=== PATIENT | female | born 1965 | race Caucasian/White ===

== ENCOUNTER 2016-10-31 07:55 | Emergency (ER) | payer MEDICAID ==
[~2016-10-31] VITALS: Ht 162.6 cm; Wt 45.0 kg
[~2016-10-31 07:55] MED LIST: ADVA100A INH; CREO3000 PO; IMIT50TA PO; KEPP10002 PO; MIDO5TAB PO; NEXI20CA PO; PANC1680 PO; PROM25TA5 PO; SPIRCAP INH; TOPI200 PO; ZOFR8TAB4 SL
[2016-10-31 07:56] VITALS: BP 122/58; PULSE 87; RESP 16; TEMP 97.6; O2SAT 97
--- NOTE | 2016-10-31 08:01 | PD ---
Physical Exam Date Seen by Provider: Oct 31, 2016 Time Seen by Provider: 07:58 Narrative Pt is a 51 year old female presenting to the ED with chief c/o Abdominal pain that radiates to around to her mid lower back. Pt reports she has vomited this morning. Pt reports hx of pancreatitis and her symptoms today are similar to what she's experienced in the past. She denies any diarrhea, fevers, [place], chest pain. Pt states her pain is an 8/10, the pain started 4 days ago. VSS, awaiting bed placement. MDM Supervised Visit with POOJA: Tiffanie Jones Oct 31, 2016 08:01
[2016-10-31] MEDS ORDERED: SODIUM CHLORIDE 0.9% FLUSH 10 ML FLUSH IV FLUSH PRN (08:15)
--- NOTE | 2016-10-31 08:23 | PD ---
HPI Chief Complaint: Abdominal Pain Time Seen by Provider: 08:08 Travel History International Travel<30 days: No Contact w/Intl Traveler<30days: No Traveled to known affect area: No History of Present Illness HPI So 51 year-old woman with chronic recurrent abdominal pain attributed to chronic pancreatitis who presents to the emergency department exacerbations of the same pain. States symptoms are worse in the past several days. She endorses worsening abdominal pain radiating through to the back, associated with vomiting. No change in her bowel movements. She was seen in [place] 2 days ago was given a prescription for antibiotics for UTI. She is currently taking Macrobid. She denies any other associated symptoms. History Past Medical History Narrative Medical Chronic recurrent abdominal pain, chronic pancreatitis, peptic ulcer disease and GERD Seizures Asthma Migraines Reported hypotension Tetanus Vaccination: < 5 Years Influenza Vaccination: No Menopausal: Yes : 1 Para: 1 Social History Alcohol Use: No Tobacco Use: No Allergies-Medications (Allergen,Severity, Reaction): Coded Allergies: Aspirin (Verified Allergy, Severe, 10/31/16) anaphylaxis Benadryl (Verified Allergy, Severe, 10/31/16) anaphylaxis Codeine (Verified Allergy, Severe, 10/31/16) Keflex (Verified Allergy, Severe, Hives, 10/31/16) Penicillin (Verified Allergy, Severe, Anaphylaxis, 10/31/16) Latex (Verified Allergy, Unknown, 10/31/16) Dilantin (Verified Adverse Reaction, Intermediate, 10/31/16) was given toxic dose years ago Reported Meds & Prescriptions Reported Meds & Active Scripts Active Zofran Odt (Ondansetron Odt) 8 Mg Tab 8 Mg SL Q8H PRN Reported Phenergan (Promethazine HCl) 25 Mg Tab 25 Mg PO ONCE Nexium (Esomeprazole DR) 20 Mg Capdr 20 Mg PO DAILY Spiriva Handihaler (Tiotropium Inh) 18 Mcg Cap 18 Mcg INH DAILY 1 capsule = 18 mcg Advair Diskus Inh (Fluticasone-Salmeterol Inh) 100-50 Mcg/Blist Aer 100 Puff INH BID Rinse mouth after use. Topamax (Topiramate) 200 Mg Tab 200 Mg PO BID Creon (Pancrelipase) 3,000-9,500-15,000 Units Cap 1 Cap PO TIDPC Pancreaze (Pancrelipase) 16,800-40,000-70,000 Units Cap 1 Cap PO TIDPC Midodrine 5 Mg Tab 5 Mg PO TID Imitrex (Sumatriptan Succinate) 50 Mg Tab 50 Mg PO ONCE PRN If a satisfactory response has not been obtained at 2 hours, a second dose may be administered Keppra (Levetiracetam) 1,000 Mg Tab 1,000 Mg PO BID Review of Systems Except as stated in HPI: all other systems reviewed are Neg Physical Exam Narrative GENERAL: Significant 51 year-old woman, uncomfortable but nontoxic. SKIN: Focused skin assessment warm/dry. CARDIOVASCULAR: Regular rate and rhythm. No murmur appreciated. RESPIRATORY: No accessory muscle use. Clear to auscultation. Breath sounds equal bilaterally. GASTROINTESTINAL: Abdomen soft, non-tender, nondistended. Hepatic and splenic margins not palpable. MUSCULOSKELETAL: No obvious deformities. No edema. NEUROLOGICAL: Awake and alert. No obvious cranial nerve deficits. Motor grossly within normal limits. Normal speech. PSYCHIATRIC: Appropriate mood and affect; insight and judgment normal. Data Data Last Documented VS Vital Signs Date Time Temp Pulse Resp B/P Pulse Ox O2 Delivery O2 Flow Rate FiO2 10/31/16 07:56 97.6 87 16 122/58 97 Orders Complete Blood Count With Diff (10/31/16 08:08) Comprehensive Metabolic Panel (10/31/16 08:08) Lipase (10/31/16 08:08) Urinalysis - C+S If Indicated (10/31/16 08:08) Iv Access Insert/Monitor (10/31/16 08:08) NPO (10/31/16 08:08) Sodium Chloride 0.9% Flush (Ns Flush) (10/31/16 08:15) Prochlorperazine Inj (Compazine Inj) (10/31/16 08:30) Ketorolac Inj (Toradol Inj) (10/31/16 08:30) Dicyclomine Inj (Bentyl Inj) (10/31/16 08:30) Sodium Chlor 0.9% 1000 Ml Inj (Ns 1000 M (10/31/16 08:30) Labs Laboratory Tests Test 10/31/16 08:40 White Blood Count 4.5 TH/MM3 Red Blood Count 4.37 MIL/MM3 Hemoglobin 12.1 GM/DL Hematocrit 36.3 % Mean Corpuscular Volume 83.0 FL Mean Corpuscular Hemoglobin 27.6 PG Mean Corpuscular Hemoglobin 33.3 % Concent Red Cell Distribution Width 15.3 % Platelet Count 137 TH/MM3 Mean Platelet Volume 10.3 FL Neutrophils (%) (Auto) 67.1 % Lymphocytes (%) (Auto) 20.4 % Monocytes (%) (Auto) 7.9 % Eosinophils (%) (Auto) 3.6 % Basophils (%) (Auto) 1.0 % Neutrophils # (Auto) 3.0 TH/MM3 Lymphocytes # (Auto) 0.9 TH/MM3 Monocytes # (Auto) 0.4 TH/MM3 Eosinophils # (Auto) 0.2 TH/MM3 Basophils # (Auto) 0.0 TH/MM3 CBC Comment DIFF FINAL Differential Comment Urine Color LIGHT-YELLOW Urine Turbidity CLEAR Urine pH 6.5 Urine Specific [place] 1.010 Urine Protein NEG mg/dL Urine Glucose (UA) NEG mg/dL Urine Ketones NEG mg/dL Urine Occult Blood NEG Urine Nitrite NEG Urine Bilirubin NEG Urine Urobilinogen LESS THAN 2.0 MG/DL Urine Leukocyte Esterase NEG Urine RBC LESS THAN 1 /hpf Urine WBC 1 /hpf Urine Squamous Epithelial <1 /hpf Cells Microscopic Urinalysis Comment CULT NOT INDICATED Sodium Level 138 MEQ/L Potassium Level 4.1 MEQ/L Chloride Level 103 MEQ/L Carbon Dioxide Level 27.6 MEQ/L Anion Gap 7 MEQ/L Blood Urea Nitrogen 15 MG/DL Creatinine 0.98 MG/DL Estimat Glomerular Filtration 60 ML/MIN Rate Random Glucose 91 MG/DL Calcium Level 8.8 MG/DL Total Bilirubin 0.2 MG/DL Aspartate Amino Transf 17 U/L (AST/SGOT) Alanine Aminotransferase 30 U/L (ALT/SGPT) Alkaline Phosphatase 74 U/L Total Protein 6.4 GM/DL Albumin 3.9 GM/DL Lipase 634 U/L [facility] Medical Decision Making Medical Screen Exam Complete: Yes Emergency Medical Condition: Yes Medical Record Reviewed: Yes Interpretation(s) LABS: CBC is unremarkable. CMP is unremarkable. Lipase 634 UA unremarkable Differential Diagnosis Acute recurrent abdominal pain, pancreatitis, gastritis, cholelithiasis, cholecystitis, UTI, other Narrative Course Medical decision making 51 year-old woman with acute recurrent abdominal pain attributed to chronic pancreatitis, etiology appears to be idiopathic. Reviewed past years worth of admissions and ED visits. Extensive workups in the past. She is a little bit of intermittent ductal dilatation in her liver that been stable for some time. She's had ultrasounds and MRCP's and CAT scans have not shown any other etiology. She is otherwise well. She is a benign abdominal exam at this time. Plan supportive treatment. Avoid opiates. Reassess. FINAL: Patient improved, was sawing some nausea. Labs otherwise unremarkable. Minimally elevated lipase. Recommend supportive treatment. Diagnosis Primary Impression: Abdominal pain Additional Impression: Pancreatitis, recurrent Additional Instructions: Eat a clear liquid diet until your abdominal pain is began resolving. This of the foods such as broths and jellos. As your pain begins resolving, you can advance diet as tolerated. Use Phenergan as needed for nausea or vomiting. Take Bentyl as needed for abdominal pain. Follow-up with your GI doctor at the first available appointment. Return to the emergency department for any new or worsening symptoms. Med/Other Pt SpecificInfo: Prescription(s) given Scripts Dicyclomine (Bentyl)20 Mg Tab20 Mg PO QID PRN (ABDOMINAL CRAMPING) #20 TAB Prov:Ramses Quiroga MD 10/31/16 Promethazine (Phenergan)25 Mg Tab25 Mg PO ONCE #1 TAB Ref 0 Prov:Ramses Quiroga MD 10/31/16 Disposition: 01 DISCHARGE HOME Condition: Stable Ramses Quiroga MD Oct 31, 2016 08:23
[2016-10-31] MEDS ORDERED: PROCHLORPERAZINE INJ 10 MG/2 ML VIAL IV PUSH ONE (08:30)
[2016-10-31] MEDS ORDERED: SODIUM CHLOR 0.9% 1000 ML INJ 1,000 ML IV ONE ×2 (08:30→10:00)
[2016-10-31] MEDS ORDERED: DICYCLOMINE HCL 20 MG/2 ML VIAL IM ONE (08:30)
[2016-10-31] MEDS ORDERED: KETOROLAC TROMETHAMINE 60 MG/2 ML (IM) VIAL IM ONE (08:30)
[2016-10-31 09:17] LABS: EOSINOPHIL # 0.2 TH/MM3 (0-0.4); EOSINOPHIL % 3.6 % (0.0-4.0); HEMATOCRIT 36.3 % (35.0-46.0); HEMO FLAGS DIFF FINAL; LYMPH % 20.4 % (9.0-44.0); LYMPHOCYTE # 0.9 TH/MM3 (1.0-4.8); MEAN CORPUSCULAR HEMOGLOBIN 27.6 PG (27.0-34.0); MEAN CORPUSCULAR HGB CONC 33.3 % (32.0-36.0); MONO % 7.9 % (0.0-8.0); NEUT % 67.1 % (16.0-70.0); PLATELET COUNT 137 TH/MM3 (150-450); RED BLOOD COUNT 4.37 MIL/MM3 (4.00-5.30); RED CELL DISTRIBUTION WIDTH 15.3 % (11.6-17.2); WHITE BLOOD COUNT 4.5 TH/MM3 (4.0-11.0)
[2016-10-31 09:32] LABS: BLOOD, URINE NEG (NEG); COMMENT (UR) CULT NOT INDICATED; CULTURE IF INDICATED CULT NOT INDICATED; GLUCOSE,URINE NEG (NEG); KETONE, URINE NEG (NEG); NITRITE,URINE NEG (NEG); PH, URINE 6.5 (5.0-8.5); SQUAMOUS EPITHELIAL CELL URINE <1 /hpf (0-5); URINE COLOR LIGHT-YELLOW (YELLW/STRAW)
[2016-10-31 09:37] LABS: ANION GAP 7 MEQ/L (5-15); AST (GOT) 17 U/L (15-37); BICARBONATE 27.6 MEQ/L (21.0-32.0); BLOOD UREA NITROGEN 15 MG/DL (7-18); CHLORIDE 103 MEQ/L (98-107); GLOMERULAR FILTRATION RATE 60 ML/MIN (>89); POTASSIUM 4.1 MEQ/L (3.5-5.1); SODIUM (NA) 138 MEQ/L (136-145)
[2016-10-31 09:40] LABS: ALKALINE PHOSPHATASE 74 U/L (45-117); ALT (GPT) 30 U/L (10-53); TOTAL BILIRUBIN ADULT 0.2 MG/DL (0.2-1.0)
[2016-10-31] MEDS ORDERED: PROM25TA5 PO (09:53)
[2016-10-31] MEDS ORDERED: BENT20TA PO (09:53)
[2016-10-31] MEDS ORDERED: ONDANSETRON HCL 4 MG/2 ML VIAL IV ONE (10:00)
[2016-10-31 11:15] VITALS: BP 122/68; PULSE 82; RESP 16; O2SAT 97
== END 2016-10-31 11:34 | disposition home or self-care (01) ==
LOC: NEPC 07:55
DX: K86.1 Other chronic pancreatitis (principal)
CPT/HCPCS: 80053; 81001; 83690; 85025; 96361; 96372; 96374; 96375; 99284; J0500; J0780; J1885; J2405; J7030

== ENCOUNTER 2016-11-27 15:01 | Inpatient (IN) | payer MEDICAID ==
[2016-11-27] VITALS (7 sets, daily range): BP systolic 100–115; BP diastolic 55–70; PULSE 59–93; RESP 15–20; TEMP 95.7–98.3; O2SAT 97–100
[~2016-11-27] VITALS: Ht 162.6 cm; Wt 50.5 kg
[~2016-11-27 15:01] MED LIST changes: +BENT20TA PO
[2016-11-27] MEDS ORDERED: PROCHLORPERAZINE INJ 10 MG/2 ML VIAL IV PUSH ONE (15:30)
[2016-11-27] MEDS ORDERED: SODIUM CHLOR 0.9% 1000 ML INJ 1,000 ML IV ONE (15:30)
[2016-11-27] MEDS ORDERED: KETOROLAC TROMETHAMINE 30 MG/ML (IVP) VIAL IV PUSH ONE (15:30)
[2016-11-27 15:44] LABS: AUTOMATED NEUTROPHIL # 3.2 TH/MM3 (1.8-7.7); BASOPHIL # 0.1 TH/MM3 (0-0.2); BASOPHIL % 1.2 % (0.0-2.0); EOSINOPHIL # 0.6 TH/MM3 (0-0.4); EOSINOPHIL % 11.8 % (0.0-4.0); HEMATOCRIT 34.8 % (35.0-46.0); HEMO FLAGS DIFF FINAL; LYMPH % 20.9 % (9.0-44.0); LYMPHOCYTE # 1.1 TH/MM3 (1.0-4.8); MEAN CELL VOLUME 82.1 FL (80.0-100.0); MEAN CORPUSCULAR HEMOGLOBIN 27.5 PG (27.0-34.0); MEAN CORPUSCULAR HGB CONC 33.5 % (32.0-36.0); MONO % 6.3 % (0.0-8.0); NEUT % 59.8 % (16.0-70.0); PLATELET COUNT 138 TH/MM3 (150-450); RED BLOOD COUNT 4.24 MIL/MM3 (4.00-5.30); RED CELL DISTRIBUTION WIDTH 14.7 % (11.6-17.2); WHITE BLOOD COUNT 5.3 TH/MM3 (4.0-11.0)
[2016-11-27 16:09] LABS: BICARBONATE 21.6 MEQ/L (21.0-32.0); POTASSIUM 3.8 MEQ/L (3.5-5.1)
[2016-11-27 16:12] LABS: INDIRECT BILIRUBIN 0.2 MG/DL (0.0-0.8); TOTAL BILIRUBIN ADULT 0.3 MG/DL (0.2-1.0)
[2016-11-27 16:22] LABS: BLOOD, URINE NEG (NEG); COMMENT (UR) CULT NOT INDICATED; CULTURE IF INDICATED CULT NOT INDICATED; GLUCOSE,URINE NEG (NEG); KETONE, URINE NEG (NEG); NITRITE,URINE NEG (NEG); SQUAMOUS EPITHELIAL CELL URINE <1 /hpf (0-5); URINE COLOR LIGHT-YELLOW (YELLW/STRAW)
[2016-11-27] MEDS ORDERED: IOHEXOL 350 MG/ML 10 ML VIAL (for RAD DIAG) IV ONE (16:59)
--- NOTE | 2016-11-27 17:21 | RADRPT ---
EXAM DATE/TIME: 11/27/2016 16:56 [place] COMPARISON: CT ABDOMEN & PELVIS W CONTRAST, April 02, 2016, 10:11. INDICATIONS : Abdomen pain for three days. IV CONTRAST: 90 cc Omnipaque 350 (iohexol) IV ORAL CONTRAST: No oral contrast ingested. RADIATION DOSE: 5.1 CTDIvol (mGy) MEDICAL HISTORY : Gastroesophageal reflux disease. Ulcer. SURGICAL HISTORY : None. ENCOUNTER: Initial ACUITY: 3 days PAIN SCALE: 5/10 LOCATION: Bilateral abdomen. TECHNIQUE: Volumetric scanning of the abdomen and pelvis was performed. Using automated exposure control and adjustment of the mA and/or kV according to patient size, radiation dose was kept as low as reasonably achievable to obtain optimal diagnostic quality images. FINDINGS: CT Abdomen: The liver, spleen, pancreas, right kidney, adrenals are unremarkable. There is no evidenc e for any appreciable pathological adenopathy, free fluid, or bowel obstruction. Evidence for prior granulomatous exposure. there are tiny cysts in the left kidney. CT pelvis: There is no evidence for mass, abscess formation, or any significant adenopathy within the pelvis. Slight fluid is present in the cul-de-sac. CONCLUSION: Essentially unremarkable study except for slight nonspecific fluid in the cul-de-sac. Ninfa Potter MD on November 27, 2016 at 17:15 Board Certified Radiologist. This report was verified electronically.
[2016-11-27] MEDS ORDERED: SUMAtriptan SUCCINATE 50 MG TAB PO PRN (17:45)
[2016-11-27] MEDS ORDERED: NALOXONE HCL 0.4 MG/ML AMP IV PRN (17:45)
[2016-11-27] MEDS ORDERED: BISACODYL 10 MG SUPP RECTAL PRN (17:45)
[2016-11-27] MEDS ORDERED: MORPHINE SULFATE 4 MG/ML INJ IV PUSH ONE (17:45)
[2016-11-27] MEDS ORDERED: ACETAMINOPHEN 325 MG TAB PO PRN (17:45)
[2016-11-27] MEDS ORDERED: ONDANSETRON HCL 4 MG/2 ML VIAL IVP PRN (17:45)
[2016-11-27] MEDS: DOCUSATE SODIUM 100 MG CAP PO SCH (17:45)
[2016-11-27] MEDS ORDERED: ONDANSETRON HCL 4 MG/2 ML VIAL IV PUSH ONE (17:45)
[2016-11-27] MEDS ORDERED: DICYCLOMINE HCL 20 MG TAB PO PRN (17:45)
[2016-11-27] MEDS ORDERED: SODIUM CHLORIDE 0.9% FLUSH 10 ML FLUSH IV FLUSH PRN (17:45)
--- NOTE | 2016-11-27 17:57 | HHI.HP ---
[facility] Laz Sykes MD Admission Diagnosis Pancreatitis Diagnoses: Chief Complaint: Abdominal pain Travel History International Travel<30 Days: No Contact w/Intl Traveler <30 Da: No Traveled to Known Affected Are: No History of Present Illness This is a pleasant 51 y/o Female with Chronic pancreatitis, Seizure disorder, Migraines, Asthma, Hypotension, Depression, who came to ER with Abdominal pain, she has recurrent pancreatitis with admissions due to this also multiple ER evaluations, Seen in her bedroom in Emergency room in the presence of one of her sisters Mrs. Kathleen Lacey, the patient is been having pain for the last 3 days, as an epigastric abdominal pain radiated to the back, 9/10 in intensity, and as a Sharp sensation. Associated nausea and vomit. also loose stools. Review of Systems Gastrointestinal: COMPLAINS OF: Abdominal pain Past Family Social History Past Medical History Chronic pancreatitis Seizure disorder Migraines Asthma Hypertension Depression Past Surgical History Right eye cornea transplant Vaginal laceration repair after delivery Kidney surgery as a child Reported Medications Reported Meds & Active Scripts Active Bentyl (Dicyclomine HCl) 20 Mg Tab 20 Mg PO QID PRN Phenergan (Promethazine HCl) 25 Mg Tab 25 Mg PO ONCE Zofran Odt (Ondansetron Odt) 8 Mg Tab 8 Mg SL Q8H PRN Reported Nexium (Esomeprazole DR) 20 Mg Capdr 20 Mg PO DAILY Spiriva Handihaler (Tiotropium Inh) 18 Mcg Cap 18 Mcg INH DAILY 1 capsule = 18 mcg Advair Diskus Inh (Fluticasone-Salmeterol Inh) 100-50 Mcg/Blist Aer 100 Puff INH BID Rinse mouth after use. Topamax (Topiramate) 200 Mg Tab 200 Mg PO BID Creon (Pancrelipase) 3,000-9,500-15,000 Units Cap 1 Cap PO TIDPC Pancreaze (Pancrelipase) 16,800-40,000-70,000 Units Cap 1 Cap PO TIDPC Midodrine 5 Mg Tab 5 Mg PO TID Imitrex (Sumatriptan Succinate) 50 Mg Tab 50 Mg PO ONCE PRN If a satisfactory response has not been obtained at 2 hours, a second dose may be administered Keppra (Levetiracetam) 1,000 Mg Tab 1,000 Mg PO BID Allergies: Coded Allergies: Aspirin (Verified Allergy, Severe, 11/27/16) anaphylaxis Benadryl (Verified Allergy, Severe, 11/27/16) anaphylaxis Codeine (Verified Allergy, Severe, 11/27/16) Keflex (Verified Allergy, Severe, Hives, 11/27/16) Penicillin (Verified Allergy, Severe, Anaphylaxis, 11/27/16) Latex (Verified Allergy, Unknown, 11/27/16) Dilantin (Verified Adverse Reaction, Intermediate, 11/27/16) was given toxic dose years ago Active Ordered Medications Current Medications Medications (Trade) Dose Ordered Sig/María Route Start Time Stop Time Status Last Admin (Bentyl) 20 mg QID PRN PO 11/27/16 17:45 UNV (Keppra) 1,000 mg BID PO 11/27/16 21:00 UNV (Proamatine) 5 mg TID PO 11/27/16 18:00 UNV (Imitrex) 50 mg ONCE PRN PO 11/27/16 17:45 UNV (Topamax) 200 mg BID PO 11/27/16 21:00 UNV Non-Formulary Medication 1 cap TIDPC PO 11/27/16 18:30 UNV Non-Formulary Medication 1 cap 1 cap TIDPC PO 11/27/16 18:30 UNV (NS 1000 ml Inj) 1,000 ml @ 125 mls/hr Q8H IV 11/27/16 17:44 UNV (NS Flush) 2 ml UNSCH PRN IV FLUSH 11/27/16 17:45 UNV (NS Flush) 2 ml BID IV FLUSH 11/27/16 21:00 UNV (Tylenol) 650 mg Q4H PRN PO 11/27/16 17:45 UNV (Zofran Inj) 4 mg Q6H PRN IVP 11/27/16 17:45 UNV (Dulcolax Supp) 10 mg DAILY PRN RECTAL 11/27/16 17:45 UNV (Colace) 100 mg Q12H PO 11/27/16 17:45 UNV (Lovenox Inj) 40 mg Q24H SQ 11/27/16 17:45 UNV (Narcan Inj) 0.4 mg UNSCH PRN IV 11/27/16 17:45 UNV (Mucinex Er) 600 mg BID PO 11/27/16 21:00 UNV Family History Mrs. Baxter of epilepsy Mother had a CVA, [place], COPD, migraines, HTN Father had stroke, [place], cancer Social History Denies any alcohol, tobacco, or illegal drug use Lives with her step sister Physical Exam Vital Signs Vital Signs Date Time Temp Pulse Resp B/P Pulse Ox O2 Delivery O2 Flow Rate FiO2 11/27/16 16:53 82 15 101/55 99 Room Air 11/27/16 15:15 89 18 115/66 97 Room Air 11/27/16 15:04 98.3 93 16 112/62 100 Physical Exam GENERAL: Well-developed fair-nourished thin patient. Sitting up legged in bed in no acute distress. SKIN: Warm and dry. No lesions noted. HEENT: Normocephalic. Pupils equal and round. Mucous membranes pink and moist. CARDIOVASCULAR: Regular rate and rhythm. No murmur appreciated. RESPIRATORY: No accessory muscle use. Clear to auscultation. Breath sounds equal bilaterally. GASTROINTESTINAL: Abdomen soft, non-tender, nondistended. Bowel sounds x4. MUSCULOSKELETAL: No obvious deformities. No clubbing or cyanosis. No edema. NEUROLOGICAL: Awake and alert. No focal neurological deficits. Moves upper and lower extremities spontaneously. Normal speech. PSYCHIATRIC: Odd mood and affect; insight and judgment normal. Laboratory Laboratory Tests Test 11/27/16 11/27/16 15:30 15:35 White Blood Count 5.3 Red Blood Count 4.24 Hemoglobin 11.6 Hematocrit 34.8 Mean Corpuscular Volume 82.1 Mean Corpuscular Hemoglobin 27.5 Mean Corpuscular Hemoglobin 33.5 Concent Red Cell Distribution Width 14.7 Platelet Count 138 Mean Platelet Volume 10.0 Neutrophils (%) (Auto) 59.8 Lymphocytes (%) (Auto) 20.9 Monocytes (%) (Auto) 6.3 Eosinophils (%) (Auto) 11.8 Basophils (%) (Auto) 1.2 Neutrophils # (Auto) 3.2 Lymphocytes # (Auto) 1.1 Monocytes # (Auto) 0.3 Eosinophils # (Auto) 0.6 Basophils # (Auto) 0.1 CBC Comment DIFF FINAL Differential Comment Sodium Level 141 Potassium Level 3.8 Chloride Level 112 Carbon Dioxide Level 21.6 Anion Gap 7 Blood Urea Nitrogen 9 Creatinine 0.98 Estimat Glomerular Filtration 60 Rate Random Glucose 90 Calcium Level 8.7 Total Bilirubin 0.3 Direct Bilirubin 0.1 Indirect Bilirubin 0.2 Aspartate Amino Transf 21 (AST/SGOT) Alanine Aminotransferase 37 (ALT/SGPT) Alkaline Phosphatase 84 Total Protein 6.3 Albumin 3.9 Lipase 708 Urine Color LIGHT-YELLOW Urine Turbidity HAZY Urine pH 7.0 Urine Specific [place] 1.012 Urine Protein NEG Urine Glucose (UA) NEG Urine Ketones NEG Urine Occult Blood NEG Urine Nitrite NEG Urine Bilirubin NEG Urine Urobilinogen LESS THAN 2.0 Urine Leukocyte Esterase TRACE Urine RBC 1 Urine WBC 3 Urine Squamous Epithelial <1 Cells Microscopic Urinalysis Comment CULT NOT INDICATED Result Diagram: 11/27/16 1530 11/27/16 1530 Imaging Last Impressions Abdomen/Pelvis CT 11/27/16 0000 Signed Impressions: Service Date/Time: Sunday, November 27, 2016 16:56 - CONCLUSION: Essentially unremarkable study except for slight nonspecific fluid in the cul-de-sac. KKathleen Potter MD Assessment and Plan Assessment and Plan 1. Recurrent pancreatitis, Lipase today 708, Acute on chronic she had already extensive GI workup, has been negative nothing by mouth, IV fluids, pain control and follow Lipase levels. 2. Seizure disorder continue home medicines 3. COPD continue Bronchodilator, Mucolytic and incentive spirometry. 4. Hypotension by history to continue home medicines. 5. Depression. continue home medicines. Code status: Full code. DVT prophylaxis with Lovenox. Discussed Condition With Patient, Sister and ER physician Code Status Full Code. Discussed Condition With Patient, sister and ER physician Nima Shipman MD Nov 27, 2016 17:57
[2016-11-27] MEDS: ENOXAPARIN SODIUM 40 MG/0.4 ML SYRINGE SQ SCH (18:00)
[2016-11-27] MEDS: SUCRALFATE 1 GM/10 ML CUP PO SCH (18:00)
[2016-11-27] MEDS: MIDODRINE 5 MG TAB PO SCH (18:00)
[2016-11-27] MEDS ORDERED: MORPHINE SULFATE 4 MG/ML INJ IV PUSH PRN (18:00)
--- NOTE | 2016-11-27 18:10 | PD ---
HPI Chief Complaint: Abdominal Pain Time Seen by Provider: 15:16 Travel History International Travel<30 days: No Contact w/Intl Traveler<30days: No Traveled to known affect area: No History of Present Illness HPI Patient is a 51 year old female who comes in complaining of abdominal pain, nausea, vomiting and headache. She has history of chronic pancreatitis and migraine headaches. She says she feels dizzy, which is typical of her migraines , but it is a little worse today. She says the pain is in the epigastric area and goes through to her back. She denies fever or chills. She denies diarrhea. PFSH Past Medical History Anemia: Yes Arthritis: No Asthma: Yes Autoimmune Disease: No Blood Disorders: No Anxiety: Yes Depression: Yes Heart Rhythm Problems: No Cancer: No Cardiovascular Problems: No High Cholesterol: No Chemotherapy: No Chest Pain: No Congestive Heart Failure: No COPD: No Cerebrovascular Accident: Yes Diabetes: No Diminished Hearing: No Endocrine: Yes (Pancreatitis) Gastrointestinal Disorders: Yes (GERD) GERD: Yes Genitourinary: No Headaches: Yes Hiatal Hernia: No Hypertension: No Immune Disorder: No Implanted Vascular Access Dvce: No Insomnia: Yes Kidney Stones: No Musculoskeletal: No Neurologic: Yes (headaches, epilepsy) Psychiatric: Yes Reproductive: No Respiratory: Yes Immunizations Current: Yes Migraines: Yes Pancreatitis: Yes Radiation Therapy: No Renal Failure: No Seizures: Yes Sickle Cell Disease: No Sleep Apnea: No Thyroid Disease: No Ulcer: Yes Tetanus Vaccination: Unknown Influenza Vaccination: No ?: Not Menopausal: Yes : 1 Para: 1 Miscarriage: 0 : 0 Ovarian Cysts: Yes Past Surgical History Abdominal Surgery: No AICD: No Arteriovenous Shunt: No Cardiac Surgery: No Ear Surgery: No Endocrine Surgery: No Eye Surgery: Yes (R EYE LASIX AND CORNEA TRANSPLANT ) Genitourinary Surgery: No Gynecologic Surgery: No Insulin Pump: No Joint Replacement: No Neurologic Surgery: No Oral Surgery: No Pacemaker: No Thoracic Surgery: No Social History Alcohol Use: No Tobacco Use: No Substance Use: No Allergies-Medications (Allergen,Severity, Reaction): Coded Allergies: Aspirin (Verified Allergy, Severe, 11/27/16) anaphylaxis Benadryl (Verified Allergy, Severe, 11/27/16) anaphylaxis Codeine (Verified Allergy, Severe, 11/27/16) Keflex (Verified Allergy, Severe, Hives, 11/27/16) Penicillin (Verified Allergy, Severe, Anaphylaxis, 11/27/16) Latex (Verified Allergy, Unknown, 11/27/16) Dilantin (Verified Adverse Reaction, Intermediate, 11/27/16) was given toxic dose years ago Reported Meds & Prescriptions Reported Meds & Active Scripts Active Bentyl (Dicyclomine HCl) 20 Mg Tab 20 Mg PO QID PRN Phenergan (Promethazine HCl) 25 Mg Tab 25 Mg PO ONCE Zofran Odt (Ondansetron Odt) 8 Mg Tab 8 Mg SL Q8H PRN Reported Nexium (Esomeprazole DR) 20 Mg Capdr 20 Mg PO DAILY Spiriva Handihaler (Tiotropium Inh) 18 Mcg Cap 18 Mcg INH DAILY 1 capsule = 18 mcg Advair Diskus Inh (Fluticasone-Salmeterol Inh) 100-50 Mcg/Blist Aer 100 Puff INH BID Rinse mouth after use. Topamax (Topiramate) 200 Mg Tab 200 Mg PO BID Creon (Pancrelipase) 3,000-9,500-15,000 Units Cap 1 Cap PO TIDPC Pancreaze (Pancrelipase) 16,800-40,000-70,000 Units Cap 1 Cap PO TIDPC Midodrine 5 Mg Tab 5 Mg PO TID Imitrex (Sumatriptan Succinate) 50 Mg Tab 50 Mg PO ONCE PRN If a satisfactory response has not been obtained at 2 hours, a second dose may be administered Keppra (Levetiracetam) 1,000 Mg Tab 1,000 Mg PO BID Review of Systems Except as stated in HPI: all other systems reviewed are Neg General / Constitutional: No: Fever, Chills Eyes: No: Blurred Vision HENT: Positive: Headaches Cardiovascular: No: Chest Pain or Discomfort Respiratory: No: Shortness of Breath Gastrointestinal: Positive: Nausea, Vomiting, Abdominal Pain Genitourinary: No: Dysuria Skin: No Rash, No Change in Pigmentation Neurologic: Positive: Dizziness Physical Exam Narrative GENERAL: Awake and alert, in no acute distress. SKIN: Focused skin assessment warm/dry. HEAD: Atraumatic. Normocephalic. EYES: Pupils equal and round. No scleral icterus. EOMI ENT: No nasal bleeding or discharge. Mucous membranes pink and moist. NECK: Trachea midline. No JVD. CARDIOVASCULAR: Regular rate and rhythm. No murmur appreciated. RESPIRATORY: No accessory muscle use. Clear to auscultation. Breath sounds equal bilaterally. GASTROINTESTINAL: Abdomen soft, nondistended. Tender to palpation of mid- epigastric area. No rebound or guarding. MUSCULOSKELETAL: No obvious deformities. No clubbing. No cyanosis. No edema. NEUROLOGICAL: Awake and alert. No obvious cranial nerve deficits. Motor grossly within normal limits. Normal speech. PSYCHIATRIC: Appropriate mood and affect; insight and judgment normal. Data Data Last Documented VS Vital Signs Date Time Temp Pulse Resp B/P Pulse Ox O2 Delivery O2 Flow Rate FiO2 11/27/16 16:53 82 15 101/55 99 Room Air 11/27/16 15:04 98.3 Orders Complete Blood Count With Diff (11/27/16 15:21) Basic Metabolic Panel (Bmp) (11/27/16 15:21) Hepatic Functional Panel (11/27/16 15:21) Lipase (11/27/16 15:21) Ct Abd/Pel W Iv Contrast(Rout) (11/27/16 ) Urinalysis - C+S If Indicated (11/27/16 15:21) Sodium Chlor 0.9% 1000 Ml Inj (Ns 1000 M (11/27/16 15:30) Prochlorperazine Inj (Compazine Inj) (11/27/16 15:30) Ketorolac Inj (Toradol Inj) (11/27/16 15:30) Iohexol 350 Inj (Omnipaque 350 Inj) (11/27/16 16:59) Ondansetron Inj (Zofran Inj) (11/27/16 17:45) Morphine Inj (Morphine Inj) (11/27/16 17:45) Dicyclomine (Bentyl) (11/27/16 17:45) Levetiracetam (Keppra) (11/27/16 21:00) Midodrine (Proamatine) (11/27/16 18:00) Sumatriptan Succinate (Imitrex) (11/27/16 17:45) Topiramate (Topamax) (11/27/16 21:00) Iqesgb-Ynzdpv-Mnov 30 (Creon 3 (11/27/16 19:00) Admit Order (Ed Use Only) (11/27/16 ) Yaazoc-Ovbllz-Naky 12-38-60 (Creon 12-38 (11/28/16 19:00) Labs Laboratory Tests Test 11/27/16 11/27/16 15:30 15:35 White Blood Count 5.3 TH/MM3 Red Blood Count 4.24 MIL/MM3 Hemoglobin 11.6 GM/DL Hematocrit 34.8 % Mean Corpuscular Volume 82.1 FL Mean Corpuscular Hemoglobin 27.5 PG Mean Corpuscular Hemoglobin 33.5 % Concent Red Cell Distribution Width 14.7 % Platelet Count 138 TH/MM3 Mean Platelet Volume 10.0 FL Neutrophils (%) (Auto) 59.8 % Lymphocytes (%) (Auto) 20.9 % Monocytes (%) (Auto) 6.3 % Eosinophils (%) (Auto) 11.8 % Basophils (%) (Auto) 1.2 % Neutrophils # (Auto) 3.2 TH/MM3 Lymphocytes # (Auto) 1.1 TH/MM3 Monocytes # (Auto) 0.3 TH/MM3 Eosinophils # (Auto) 0.6 TH/MM3 Basophils # (Auto) 0.1 TH/MM3 CBC Comment DIFF FINAL Differential Comment Sodium Level 141 MEQ/L Potassium Level 3.8 MEQ/L Chloride Level 112 MEQ/L Carbon Dioxide Level 21.6 MEQ/L Anion Gap 7 MEQ/L Blood Urea Nitrogen 9 MG/DL Creatinine 0.98 MG/DL Estimat Glomerular Filtration 60 ML/MIN Rate Random Glucose 90 MG/DL Calcium Level 8.7 MG/DL Total Bilirubin 0.3 MG/DL Direct Bilirubin 0.1 MG/DL Indirect Bilirubin 0.2 MG/DL Aspartate Amino Transf 21 U/L (AST/SGOT) Alanine Aminotransferase 37 U/L (ALT/SGPT) Alkaline Phosphatase 84 U/L Total Protein 6.3 GM/DL Albumin 3.9 GM/DL Lipase 708 U/L Urine Color LIGHT-YELLOW Urine Turbidity HAZY Urine pH 7.0 Urine Specific [place] 1.012 Urine Protein NEG mg/dL Urine Glucose (UA) NEG mg/dL Urine Ketones NEG mg/dL Urine Occult Blood NEG Urine Nitrite NEG Urine Bilirubin NEG Urine Urobilinogen LESS THAN 2.0 MG/DL Urine Leukocyte Esterase TRACE Urine RBC 1 /hpf Urine WBC 3 /hpf Urine Squamous Epithelial <1 /hpf Cells Microscopic Urinalysis Comment CULT NOT INDICATED MDM Medical Decision Making Medical Screen Exam Complete: Yes Emergency Medical Condition: Yes Medical Record Reviewed: Yes Differential Diagnosis pancreatitis vs migraine vs gastritis Narrative Course Patient is a 51 year old female who comes in complaining of headache and abdominal pain with nausea and vomiting. Exam shows no neurologic abnormalities , she does have tenderness to the epigastric area. IV established, labs sent. Given IVF, Compazine, Toradol. Lipase is 708, which is higher than it has been in her past few visits. She still has pain and nausea after medications. Given Zofran and morphine. CT abd/pelvis performed shows no acute abnormalities. Patient placed in observation for further management of acute on chronic pancreatitis. Diagnosis Primary Impression: Pancreatitis, recurrent Admitting Information Admitting Physician Requests: Observation Condition: Stable Eula Byers MD Nov 27, 2016 18:10
[2016-11-27] MEDS: SODIUM CHLOR 0.9% 1000 ML INJ 1,000 ML IV SCH (18:16)
[2016-11-27] MEDS: PANTOPRAZOLE SODIUM 40 MG VIAL IV PUSH SCH (18:16)
[2016-11-27] MEDS: SODIUM CHLORIDE 0.9% FLUSH 10 ML FLUSH IV FLUSH SCH (19:44)
[2016-11-27] MEDS: LIPASE/PROTEASE/AMYLASE (6,000/19,000/30,000) CAP PO SCH (20:58)
[2016-11-27] MEDS: guaiFENesin E.R. 600 MG TAB PO SCH (20:58)
[2016-11-27] MEDS: TOPIRAMATE 200 MG TAB PO SCH (20:58)
[2016-11-27] MEDS: levETIRAcetam 500 MG TAB PO SCH (20:59)
[2016-11-27] MEDS: RESP: ALBUTEROL 2.5 MG/IPRATROPIUM 0.5 MG NEB (SCH) NEB (21:17)
[2016-11-28] VITALS (11 sets, daily range): BP systolic 90–108; BP diastolic 42–66; PULSE 56–80; RESP 18–20; TEMP 97.6–98.5; O2SAT 95–100
[2016-11-28] MEDS: SODIUM CHLOR 0.9% 1000 ML INJ 1,000 ML IV SCH ×3 (01:44→17:38)
[2016-11-28] MEDS: RESP: ALBUTEROL 2.5 MG/IPRATROPIUM 0.5 MG NEB (SCH) NEB ×4 (03:38→21:23)
[2016-11-28] MEDS ORDERED: SODIUM CHLORID 0.9% 500 ML INJ 500 ML IV ONE (05:00)
[2016-11-28] MEDS: DOCUSATE SODIUM 100 MG CAP PO SCH ×2 (05:31→17:37)
[2016-11-28] MEDS: PANTOPRAZOLE SODIUM 40 MG VIAL IV PUSH SCH ×2 (05:45→17:37)
[2016-11-28] MEDS: SUCRALFATE 1 GM/10 ML CUP PO SCH ×4 (05:45→17:37)
[2016-11-28 07:39] LABS: AUTOMATED NEUTROPHIL # 1.7 TH/MM3 (1.8-7.7); BASOPHIL % 0.8 % (0.0-2.0); EOSINOPHIL # 0.4 TH/MM3 (0-0.4); EOSINOPHIL % 12.7 % (0.0-4.0); HEMATOCRIT 33.4 % (35.0-46.0); LYMPH % 26.6 % (9.0-44.0); LYMPHOCYTE # 0.9 TH/MM3 (1.0-4.8); MEAN CELL VOLUME 83.5 FL (80.0-100.0); MEAN CORPUSCULAR HEMOGLOBIN 27.3 PG (27.0-34.0); MEAN CORPUSCULAR HGB CONC 32.7 % (32.0-36.0); MONO % 7.4 % (0.0-8.0); NEUT % 52.5 % (16.0-70.0); PLATELET COUNT 95 TH/MM3 (150-450); RED CELL DISTRIBUTION WIDTH 14.8 % (11.6-17.2); WHITE BLOOD COUNT 3.3 TH/MM3 (4.0-11.0)
[2016-11-28 07:45] LABS: ALKALINE PHOSPHATASE 68 U/L (45-117); ALT (GPT) 30 U/L (10-53); ANION GAP 7 MEQ/L (5-15); AST (GOT) 18 U/L (15-37); BICARBONATE 19.2 MEQ/L (21.0-32.0); BLOOD UREA NITROGEN 7 MG/DL (7-18); CHLORIDE 116 MEQ/L (98-107); GLOMERULAR FILTRATION RATE 63 ML/MIN (>89); POTASSIUM 3.8 MEQ/L (3.5-5.1); SODIUM (NA) 142 MEQ/L (136-145); TOTAL BILIRUBIN ADULT 0.3 MG/DL (0.2-1.0)
[2016-11-28 07:48] LABS: HEMO FLAGS AUTO DIFF
--- NOTE | 2016-11-28 08:09 | HHI.PR ---
Subjective Remarks This is a pleasant 51 y/o Female with Chronic pancreatitis, Seizure disorder, Migraines, Asthma, Hypotension, Depression, who came to ER with Abdominal pain, she has recurrent pancreatitis with admissions due to this also multiple ER evaluations, Seen in her bedroom in Emergency room in the presence of one of her sisters Mrs. Kathleen Lacey, the patient is been having pain for the last 3 days, as an epigastric abdominal pain radiated to the back, 9/10 in intensity, and as a Sharp sensation. Associated nausea and vomit. also loose stools. 11/28: Stable seen in her bedroom, continue nauseated, not vomiting and no diarrhea, not able to take by mouth yet, continue present care, Lipase trending down. Objective Vital Signs Date Time Temp Pulse Resp B/P Pulse Ox O2 Delivery O2 Flow Rate FiO2 11/28/16 04:00 97.8 56 20 90/55 97 11/28/16 03:41 63 11/28/16 03:30 76 11/28/16 00:00 97.6 62 20 96/66 97 Automatic Cuff 11/27/16 21:15 97 11/27/16 21:10 14 11/27/16 20:00 95.7 59 20 100/60 98 11/27/16 20:00 95.7 59 20 100/60 98 11/27/16 18:45 97.7 69 18 113/70 100 11/27/16 18:23 76 16 107/59 98 11/27/16 16:53 82 15 101/55 99 Room Air 11/27/16 15:15 89 18 115/66 97 Room Air 11/27/16 15:04 98.3 93 16 112/62 100 Result Diagram: 11/28/16 0655 11/28/16 0655 Imaging Last Impressions Abdomen/Pelvis CT 11/27/16 0000 Signed Impressions: Service Date/Time: Sunday, November 27, 2016 16:56 - CONCLUSION: Essentially unremarkable study except for slight nonspecific fluid in the cul-de-sac. Ninfa Potter MD Procedures No procedures performed. Other Results Laboratory Tests Test 11/27/16 11/27/16 11/28/16 15:30 15:35 06:55 Differential Comment Direct Bilirubin 0.1 MG/DL Indirect Bilirubin 0.2 MG/DL Urine Color LIGHT-YELLOW Urine Turbidity HAZY Urine pH 7.0 Urine Specific [place] 1.012 Urine Protein NEG mg/dL Urine Glucose (UA) NEG mg/dL Urine Ketones NEG mg/dL Urine Occult Blood NEG Urine Nitrite NEG Urine Bilirubin NEG Urine Urobilinogen LESS THAN 2.0 MG/DL Urine Leukocyte Esterase TRACE Urine RBC 1 /hpf Urine WBC 3 /hpf Urine Squamous Epithelial <1 /hpf Cells Microscopic Urinalysis Comment CULT NOT INDICATED White Blood Count 3.3 TH/MM3 Red Blood Count 4.00 MIL/MM3 Hemoglobin 10.9 GM/DL Hematocrit 33.4 % Mean Corpuscular Volume 83.5 FL Mean Corpuscular Hemoglobin 27.3 PG Mean Corpuscular Hemoglobin 32.7 % Concent Red Cell Distribution Width 14.8 % Platelet Count 95 TH/MM3 Mean Platelet Volume 10.1 FL Neutrophils (%) (Auto) 52.5 % Lymphocytes (%) (Auto) 26.6 % Monocytes (%) (Auto) 7.4 % Eosinophils (%) (Auto) 12.7 % Basophils (%) (Auto) 0.8 % Neutrophils # (Auto) 1.7 TH/MM3 Lymphocytes # (Auto) 0.9 TH/MM3 Monocytes # (Auto) 0.2 TH/MM3 Eosinophils # (Auto) 0.4 TH/MM3 Basophils # (Auto) 0.0 TH/MM3 CBC Comment AUTO DIFF Sodium Level 142 MEQ/L Potassium Level 3.8 MEQ/L Chloride Level 116 MEQ/L Carbon Dioxide Level 19.2 MEQ/L Anion Gap 7 MEQ/L Blood Urea Nitrogen 7 MG/DL Creatinine 0.93 MG/DL Estimat Glomerular Filtration 63 ML/MIN Rate Random Glucose 96 MG/DL Calcium Level 7.8 MG/DL Total Bilirubin 0.3 MG/DL Aspartate Amino Transf 18 U/L (AST/SGOT) Alanine Aminotransferase 30 U/L (ALT/SGPT) Alkaline Phosphatase 68 U/L Total Protein 5.3 GM/DL Albumin 3.1 GM/DL Lipase 464 U/L Objective Remarks GENERAL: Well-developed fair-nourished thin patient. Sitting up legged in bed in no acute distress. SKIN: Warm and dry. No lesions noted. HEENT: Normocephalic. Pupils equal and round. Mucous membranes pink and moist. CARDIOVASCULAR: Regular rate and rhythm. No murmur appreciated. RESPIRATORY: No accessory muscle use. Clear to auscultation. Breath sounds equal bilaterally. GASTROINTESTINAL: Abdomen soft, non-tender, nondistended. Bowel sounds x4. MUSCULOSKELETAL: No obvious deformities. No clubbing or cyanosis. No edema. NEUROLOGICAL: Awake and alert. No focal neurological deficits. Moves upper and lower extremities spontaneously. Normal speech. PSYCHIATRIC: Odd mood and affect; insight and judgment normal. Medications and IVs Current Medications Medications (Trade) Dose Ordered Sig/María Route Start Time Stop Time Status Last Admin (Bentyl) 20 mg QID PRN PO 11/27/16 17:45 (Keppra) 1,000 mg BID PO 11/27/16 21:00 11/27/16 20:59 (Proamatine) 5 mg TID PO 11/27/16 18:00 (Imitrex) 50 mg ONCE PRN PO 11/27/16 17:45 11/30/16 17:44 (Topamax) 200 mg BID PO 11/27/16 21:00 11/27/16 20:58 (Creon 12-38-60) 1 cap TIDPC PO 11/28/16 19:00 Amylase/Lipase/ Protease 1 cap 1 cap TIDPC PO 11/27/16 19:00 11/27/16 20:58 (NS 1000 ml Inj) 1,000 ml @ 125 mls/hr Q8H IV 11/27/16 17:44 11/27/16 18:16 (NS Flush) 2 ml UNSCH PRN IV FLUSH 11/27/16 17:45 (NS Flush) 2 ml BID IV FLUSH 11/27/16 21:00 (Tylenol) 650 mg Q4H PRN PO 11/27/16 17:45 (Zofran Inj) 4 mg Q6H PRN IVP 11/27/16 17:45 (Dulcolax Supp) 10 mg DAILY PRN RECTAL 11/27/16 17:45 (Colace) 100 mg Q12H PO 11/27/16 17:45 (Lovenox Inj) 40 mg Q24H SQ 11/27/16 18:00 (Narcan Inj) 0.4 mg UNSCH PRN IV 11/27/16 17:45 (Mucinex Er) 600 mg BID PO 11/27/16 21:00 11/27/16 20:58 (Protonix Inj) 40 mg Q12H IV PUSH 11/27/16 18:00 11/28/16 05:45 (Carafate Liq) 1 gm Q6HR PO 11/27/16 18:00 11/28/16 05:45 (Morphine Inj) 2 mg Q3H PRN IV PUSH 11/27/16 18:00 11/27/16 20:59 A/P Assessment and Plan 1. Recurrent pancreatitis, Lipase on admission 708, Acute on chronic she had already extensive GI workup, has been negative nothing by mouth, IV fluids, pain control, Lipase today 464 and following. 2. Seizure disorder continue home medicines 3. COPD continue Bronchodilator, Mucolytic and incentive spirometry. 4. Hypotension continue low even on Midodrine 5 mg TID will increase to 10 mg TID. 5. Depression. continue home medicines. Code status: Full code. DVT prophylaxis with Lovenox. Discussed Condition With Patient Code Status Full Code. Discharge Planning Expected in one to two days. Nima Shipman MD Nov 28, 2016 08:09
[2016-11-28] MEDS: SODIUM CHLORIDE 0.9% FLUSH 10 ML FLUSH IV FLUSH SCH ×2 (09:00→21:31)
[2016-11-28] MEDS: levETIRAcetam 500 MG TAB PO SCH ×3 (09:51→21:31)
[2016-11-28] MEDS: MIDODRINE 5 MG TAB PO SCH ×3 (09:51→18:31)
[2016-11-28] MEDS: LIPASE/PROTEASE/AMYLASE (6,000/19,000/30,000) CAP PO SCH ×3 (09:51→17:37)
[2016-11-28] MEDS: TOPIRAMATE 200 MG TAB PO SCH ×3 (09:51→21:31)
[2016-11-28] MEDS: guaiFENesin E.R. 600 MG TAB PO SCH ×3 (09:51→21:31)
[2016-11-28 11:45] LABS: PLATELET ESTIMATE SMEAR LOW (NORMAL); PLATELET MORPHOLOGY NORMAL (NORMAL); SCAN/DIFF AUTO DIFF CONFIRMED
[2016-11-28] MEDS: ENOXAPARIN SODIUM 40 MG/0.4 ML SYRINGE SQ SCH (17:36)
[2016-11-28] MEDS: LIPASE/PROTEASE/AMYLASE (12,000/38,000/60,000) CAP PO SCH (17:37)
[2016-11-28] MEDS ORDERED: PROMETHAZINE HCL 25 MG TAB PO PRN (22:15)
[2016-11-28] MEDS ORDERED: PROMETHAZINE HCL 25 MG SUPP RECTAL ONE (23:00)
[2016-11-29] VITALS (7 sets, daily range): BP systolic 71–135; BP diastolic 50–66; PULSE 57–87; RESP 15–21; TEMP 97.3–99.3; O2SAT 95–100
[2016-11-29] MEDS: SUCRALFATE 1 GM/10 ML CUP PO SCH ×4 (01:05→18:08)
[2016-11-29] MEDS: MORPHINE SULFATE 4 MG/ML INJ IV PUSH PRN ×4 (01:07→16:54)
[2016-11-29] MEDS: SODIUM CHLOR 0.9% 1000 ML INJ 1,000 ML IV SCH ×3 (02:57→17:44)
[2016-11-29] MEDS: RESP: ALBUTEROL 2.5 MG/IPRATROPIUM 0.5 MG NEB (SCH) NEB ×4 (03:11→18:43)
[2016-11-29] MEDS: DOCUSATE SODIUM 100 MG CAP PO SCH ×2 (05:45→17:45)
[2016-11-29] MEDS: PANTOPRAZOLE SODIUM 40 MG VIAL IV PUSH SCH ×2 (06:00→18:00)
[2016-11-29 06:15] LABS: BICARBONATE 22.7 MEQ/L (21.0-32.0); POTASSIUM 3.6 MEQ/L (3.5-5.1)
[2016-11-29] MEDS: levETIRAcetam 500 MG TAB PO SCH ×2 (08:58→21:00)
[2016-11-29] MEDS: LIPASE/PROTEASE/AMYLASE (12,000/38,000/60,000) CAP PO SCH ×3 (08:59→18:07)
[2016-11-29] MEDS: MIDODRINE 5 MG TAB PO SCH ×3 (08:59→18:08)
[2016-11-29] MEDS: guaiFENesin E.R. 600 MG TAB PO SCH ×2 (08:59→21:00)
[2016-11-29] MEDS: TOPIRAMATE 200 MG TAB PO SCH ×2 (09:00→21:00)
[2016-11-29] MEDS: LIPASE/PROTEASE/AMYLASE (6,000/19,000/30,000) CAP PO SCH ×3 (09:00→18:07)
[2016-11-29] MEDS: SODIUM CHLORIDE 0.9% FLUSH 10 ML FLUSH IV FLUSH SCH ×2 (09:00→21:00)
--- NOTE | 2016-11-29 16:43 | HHI.PR ---
Subjective Remarks This is a pleasant 51 y/o Female with Chronic pancreatitis, Seizure disorder, Migraines, Asthma, Hypotension, Depression, who came to ER with Abdominal pain, she has recurrent pancreatitis with admissions due to this also multiple ER evaluations, Seen in her bedroom in Emergency room in the presence of one of her sisters Mrs. Kathleen Lacey, the patient is been having pain for the last 3 days, as an epigastric abdominal pain radiated to the back, 9/10 in intensity, and as a Sharp sensation. Associated nausea and vomit. also loose stools. 11/29: Seen in her bedroom in the presence of her sister, improving her Lipase to normal levels, as per patient continue with some discomfort but able to take by mouth. discussed with nurse. started liquid diet. Objective Vital Signs Date Time Temp Pulse Resp B/P Pulse Ox O2 Delivery O2 Flow Rate FiO2 11/29/16 16:15 98.6 57 17 135/66 98 11/29/16 13:11 97.9 70 16 112/59 98 11/29/16 11:02 16 11/29/16 10:02 87 18 104/50 100 11/29/16 07:13 118/57 11/29/16 04:04 98.9 69 21 71/ 95 11/29/16 00:28 99.3 65 20 119/57 97 11/28/16 21:20 60 11/28/16 19:14 98.5 77 20 108/58 99 I/O 11/28/16 11/28/16 11/28/16 11/29/16 11/29/16 11/29/16 07:00 15:00 23:00 07:00 15:00 23:00 Intake Total 3199 ml Balance 3199 ml Intake IV Total 3199 ml # Voids 0 5 # Bowel Movements 0 Result Diagram: 11/28/16 0655 11/29/16 0427 Imaging Last Impressions Abdomen/Pelvis CT 11/27/16 0000 Signed Impressions: Service Date/Time: Sunday, November 27, 2016 16:56 - CONCLUSION: Essentially unremarkable study except for slight nonspecific fluid in the cul-de-sac. Ninfa Potter MD Procedures No procedures performed. Other Results Laboratory Tests Test 11/27/16 11/27/16 11/28/16 11/29/16 15:30 15:35 06:55 04:27 Direct Bilirubin 0.1 MG/DL Indirect Bilirubin 0.2 MG/DL Urine Color LIGHT-YELLOW Urine Turbidity HAZY Urine pH 7.0 Urine Specific [employer] 1.012 Urine Protein NEG mg/dL Urine Glucose (UA) NEG mg/dL Urine Ketones NEG mg/dL Urine Occult Blood NEG Urine Nitrite NEG Urine Bilirubin NEG Urine Urobilinogen LESS THAN 2.0 MG/DL Urine Leukocyte Esterase TRACE Urine RBC 1 /hpf Urine WBC 3 /hpf Urine Squamous Epithelial <1 /hpf Cells Microscopic Urinalysis Comment CULT NOT INDICATED White Blood Count 3.3 TH/MM3 Red Blood Count 4.00 MIL/MM3 Hemoglobin 10.9 GM/DL Hematocrit 33.4 % Mean Corpuscular Volume 83.5 FL Mean Corpuscular Hemoglobin 27.3 PG Mean Corpuscular Hemoglobin 32.7 % Concent Red Cell Distribution Width 14.8 % Platelet Count 95 TH/MM3 Mean Platelet Volume 10.1 FL Neutrophils (%) (Auto) 52.5 % Lymphocytes (%) (Auto) 26.6 % Monocytes (%) (Auto) 7.4 % Eosinophils (%) (Auto) 12.7 % Basophils (%) (Auto) 0.8 % Neutrophils # (Auto) 1.7 TH/MM3 Lymphocytes # (Auto) 0.9 TH/MM3 Monocytes # (Auto) 0.2 TH/MM3 Eosinophils # (Auto) 0.4 TH/MM3 Basophils # (Auto) 0.0 TH/MM3 CBC Comment AUTO DIFF Differential Comment AUTO DIFF CONFIRMED Platelet Estimate LOW Platelet Morphology Comment NORMAL Total Bilirubin 0.3 MG/DL Aspartate Amino Transf 18 U/L (AST/SGOT) Alanine Aminotransferase 30 U/L (ALT/SGPT) Alkaline Phosphatase 68 U/L Total Protein 5.3 GM/DL Albumin 3.1 GM/DL Sodium Level 143 MEQ/L Potassium Level 3.6 MEQ/L Chloride Level 112 MEQ/L Carbon Dioxide Level 22.7 MEQ/L Anion Gap 8 MEQ/L Blood Urea Nitrogen 7 MG/DL Creatinine 0.88 MG/DL Estimat Glomerular Filtration 67 ML/MIN Rate Random Glucose 75 MG/DL Calcium Level 8.3 MG/DL Lipase 163 U/L Objective Remarks GENERAL: Well-developed fair-nourished thin patient. Sitting up legged in bed in no acute distress. SKIN: Warm and dry. No lesions noted. HEENT: Normocephalic. Pupils equal and round. Mucous membranes pink and moist. CARDIOVASCULAR: Regular rate and rhythm. No murmur appreciated. RESPIRATORY: No accessory muscle use. Clear to auscultation. Breath sounds equal bilaterally. GASTROINTESTINAL: Abdomen soft, non-tender, nondistended. Bowel sounds x4. MUSCULOSKELETAL: No obvious deformities. No clubbing or cyanosis. No edema. NEUROLOGICAL: Awake and alert. No focal neurological deficits. Moves upper and lower extremities spontaneously. Normal speech. PSYCHIATRIC: Odd mood and affect; insight and judgment normal. Medications and IVs Current Medications Medications (Trade) Dose Ordered Sig/María Route Start Time Stop Time Status Last Admin (Bentyl) 20 mg QID PRN PO 11/27/16 17:45 (Keppra) 1,000 mg BID PO 11/27/16 21:00 11/29/16 08:58 (Imitrex) 50 mg ONCE PRN PO 11/27/16 17:45 11/30/16 17:44 (Topamax) 200 mg BID PO 11/27/16 21:00 11/29/16 09:00 (Creon 12-38-60) 1 cap TIDPC PO 11/28/16 19:00 11/29/16 14:36 Amylase/Lipase/ Protease 1 cap 1 cap TIDPC PO 11/27/16 19:00 11/29/16 14:36 (NS 1000 ml Inj) 1,000 ml @ 125 mls/hr Q8H IV 11/27/16 17:44 11/29/16 02:57 (NS Flush) 2 ml UNSCH PRN IV FLUSH 11/27/16 17:45 (NS Flush) 2 ml BID IV FLUSH 11/27/16 21:00 11/29/16 09:00 (Tylenol) 650 mg Q4H PRN PO 11/27/16 17:45 (Dulcolax Supp) 10 mg DAILY PRN RECTAL 11/27/16 17:45 (Colace) 100 mg Q12H PO 11/27/16 17:45 11/28/16 17:37 (Lovenox Inj) 40 mg Q24H SQ 11/27/16 18:00 (Narcan Inj) 0.4 mg UNSCH PRN IV 11/27/16 17:45 (Mucinex Er) 600 mg BID PO 11/27/16 21:00 5/1/17 08:59 (Protonix Inj) 40 mg Q12H IV PUSH 11/27/16 18:00 11/28/16 17:37 (Carafate Liq) 1 gm Q6HR PO 11/27/16 18:00 11/29/16 10:56 (Proamatine) 10 mg TID PO 11/28/16 18:00 11/29/16 14:37 (Morphine Inj) 2 mg Q4HR PRN IV PUSH 11/29/16 00:00 11/29/16 10:57 (Phenergan) 25 mg Q6H PRN PO 11/28/16 22:15 A/P Assessment and Plan 1. Recurrent pancreatitis, Lipase on admission 708, Acute on chronic she had already extensive GI workup, has been negative nothing by mouth, IV fluids, pain control, Lipase today 163 improved. started on clear liquid diet. 2. Seizure disorder continue home medicines 3. COPD continue Bronchodilator, Mucolytic and incentive spirometry. 4. Hypotension continue low even on Midodrine 5 mg TID will increase to 10 mg TID. better blood pressure measurement. 5. Depression. continue home medicines. Code status: Full code. DVT prophylaxis with Lovenox. Discussed Condition With Patient and her sister in the room. Code Status Full Code. Discharge Planning Expected for tomorrow. Nima Shipman MD November 29, 2016 16:43
[2016-11-29] MEDS ORDERED: POTASSIUM CHLORIDE 20 MEQ CONTROLLED RELEASE TAB PO ONE (16:45)
[2016-11-29] MEDS: ENOXAPARIN SODIUM 40 MG/0.4 ML SYRINGE SQ SCH (18:00)
[2016-11-30] VITALS: BP 135/62; PULSE 61; RESP 16; TEMP 98.4; O2SAT 96
[2016-11-30] MEDS: SODIUM CHLOR 0.9% 1000 ML INJ 1,000 ML IV SCH (00:49)
[2016-11-30] MEDS: MORPHINE SULFATE 4 MG/ML INJ IV PUSH PRN (01:19)
[2016-11-30] MEDS: RESP: ALBUTEROL 2.5 MG/IPRATROPIUM 0.5 MG NEB (SCH) NEB ×2 (03:33→09:30)
[2016-11-30 04:00] VITALS: BP 92/52; PULSE 73; RESP 16; TEMP 98.1; O2SAT 96
[2016-11-30] MEDS: DOCUSATE SODIUM 100 MG CAP PO SCH (05:45)
[2016-11-30] MEDS: SUCRALFATE 1 GM/10 ML CUP PO SCH ×2 (06:00)
[2016-11-30] MEDS: PANTOPRAZOLE SODIUM 40 MG VIAL IV PUSH SCH (06:00)
--- NOTE | 2016-11-30 07:38 | HHI.PR ---
Subjective Remarks This is a pleasant 51 y/o Female with Chronic pancreatitis, Seizure disorder, Migraines, Asthma, Hypotension, Depression, who came to ER with Abdominal pain, she has recurrent pancreatitis with admissions due to this also multiple ER evaluations, Seen in her bedroom in Emergency room in the presence of one of her sisters Mrs. Kathleen Lacey, the patient is been having pain for the last 3 days, as an epigastric abdominal pain radiated to the back, 9/10 in intensity, and as a Sharp sensation. Associated nausea and vomit. also loose stools. 11/29: Seen in her bedroom in the presence of her sister, improving her Lipase to normal levels, as per patient continue with some discomfort but able to take by mouth. discussed with nurse. started liquid diet. 11/30: Yesterday was discussed in length with her Sister Mrs. Kathleen Lacey she states both are basically Homeless, they live in a car or when they can in a hotel. today again her Sister in the room, her lifestyle has to change in order to improve her Health status, as per her Sister the Publicity Director is coming to help then and gave them a Hotel for one month. Objective Vital Signs Date Time Temp Pulse Resp B/P Pulse Ox O2 Delivery O2 Flow Rate FiO2 11/30/16 04:00 98.1 73 16 92/52 96 11/30/16 00:00 98.4 61 16 135/62 96 11/29/16 20:00 97.3 66 15 111/59 97 11/29/16 16:59 18 11/29/16 16:15 98.6 57 17 135/66 98 11/29/16 13:11 97.9 70 16 112/59 98 11/29/16 10:02 87 18 104/50 100 I/O 11/29/16 11/29/16 11/29/16 11/30/16 11/30/16 11/30/16 07:00 15:00 23:00 07:00 15:00 23:00 Intake Total 3199 ml 200 ml Balance 3199 ml 200 ml Intake Oral 200 ml IV Total 3199 ml # Voids 5 Result Diagram: 11/28/16 0655 11/29/16 0427 Imaging Last Impressions Abdomen/Pelvis CT 11/27/16 0000 Signed Impressions: Service Date/Time: Sunday, November 27, 2016 16:56 - CONCLUSION: Essentially unremarkable study except for slight nonspecific fluid in the cul-de-sac. Ninfa Potter MD Procedures No procedures performed. Other Results Laboratory Tests Test 11/27/16 11/27/16 11/28/16 11/29/16 15:30 15:35 06:55 04:27 Direct Bilirubin 0.1 MG/DL Indirect Bilirubin 0.2 MG/DL Urine Color LIGHT-YELLOW Urine Turbidity HAZY Urine pH 7.0 Urine Specific [place] 1.012 Urine Protein NEG mg/dL Urine Glucose (UA) NEG mg/dL Urine Ketones NEG mg/dL Urine Occult Blood NEG Urine Nitrite NEG Urine Bilirubin NEG Urine Urobilinogen LESS THAN 2.0 MG/DL Urine Leukocyte Esterase TRACE Urine RBC 1 /hpf Urine WBC 3 /hpf Urine Squamous Epithelial <1 /hpf Cells Microscopic Urinalysis Comment CULT NOT INDICATED White Blood Count 3.3 TH/MM3 Red Blood Count 4.00 MIL/MM3 Hemoglobin 10.9 GM/DL Hematocrit 33.4 % Mean Corpuscular Volume 83.5 FL Mean Corpuscular Hemoglobin 27.3 PG Mean Corpuscular Hemoglobin 32.7 % Concent Red Cell Distribution Width 14.8 % Platelet Count 95 TH/MM3 Mean Platelet Volume 10.1 FL Neutrophils (%) (Auto) 52.5 % Lymphocytes (%) (Auto) 26.6 % Monocytes (%) (Auto) 7.4 % Eosinophils (%) (Auto) 12.7 % Basophils (%) (Auto) 0.8 % Neutrophils # (Auto) 1.7 TH/MM3 Lymphocytes # (Auto) 0.9 TH/MM3 Monocytes # (Auto) 0.2 TH/MM3 Eosinophils # (Auto) 0.4 TH/MM3 Basophils # (Auto) 0.0 TH/MM3 CBC Comment AUTO DIFF Differential Comment AUTO DIFF CONFIRMED Platelet Estimate LOW Platelet Morphology Comment NORMAL Total Bilirubin 0.3 MG/DL Aspartate Amino Transf 18 U/L (AST/SGOT) Alanine Aminotransferase 30 U/L (ALT/SGPT) Alkaline Phosphatase 68 U/L Total Protein 5.3 GM/DL Albumin 3.1 GM/DL Sodium Level 143 MEQ/L Potassium Level 3.6 MEQ/L Chloride Level 112 MEQ/L Carbon Dioxide Level 22.7 MEQ/L Anion Gap 8 MEQ/L Blood Urea Nitrogen 7 MG/DL Creatinine 0.88 MG/DL Estimat Glomerular Filtration 67 ML/MIN Rate Random Glucose 75 MG/DL Calcium Level 8.3 MG/DL Lipase 163 U/L Objective Remarks GENERAL: Well-developed fair-nourished thin patient. Sitting up legged in bed in no acute distress. SKIN: Warm and dry. No lesions noted. HEENT: Normocephalic. Pupils equal and round. Mucous membranes pink and moist. CARDIOVASCULAR: Regular rate and rhythm. No murmur appreciated. RESPIRATORY: No accessory muscle use. Clear to auscultation. Breath sounds equal bilaterally. GASTROINTESTINAL: Abdomen soft, non-tender, nondistended. Bowel sounds x4. MUSCULOSKELETAL: No obvious deformities. No clubbing or cyanosis. No edema. NEUROLOGICAL: Awake and alert. No focal neurological deficits. Moves upper and lower extremities spontaneously. Normal speech. PSYCHIATRIC: Odd mood and affect; insight and judgment normal. Medications and IVs Current Medications Medications (Trade) Dose Ordered Sig/María Route Start Time Stop Time Status Last Admin (Bentyl) 20 mg QID PRN PO 11/27/16 17:45 (Keppra) 1,000 mg BID PO 11/27/16 21:00 11/29/16 21:00 (Imitrex) 50 mg ONCE PRN PO 11/27/16 17:45 11/30/16 17:44 (Topamax) 200 mg BID PO 11/27/16 21:00 11/29/16 21:00 (Creon 12-38-60) 1 cap TIDPC PO 11/28/16 19:00 11/29/16 18:07 Amylase/Lipase/ Protease 1 cap 1 cap TIDPC PO 11/27/16 19:00 11/29/16 18:07 (NS 1000 ml Inj) 1,000 ml @ 125 mls/hr Q8H IV 11/27/16 17:44 11/30/16 00:49 (NS Flush) 2 ml UNSCH PRN IV FLUSH 11/27/16 17:45 (NS Flush) 2 ml BID IV FLUSH 11/27/16 21:00 11/29/16 21:00 (Tylenol) 650 mg Q4H PRN PO 11/27/16 17:45 (Dulcolax Supp) 10 mg DAILY PRN RECTAL 11/27/16 17:45 (Colace) 100 mg Q12H PO 11/27/16 17:45 11/30/16 05:45 (Lovenox Inj) 40 mg Q24H SQ 11/27/16 18:00 (Narcan Inj) 0.4 mg UNSCH PRN IV 11/27/16 17:45 (Mucinex Er) 600 mg BID PO 11/27/16 21:00 11/29/16 21:00 (Protonix Inj) 40 mg Q12H IV PUSH 11/27/16 18:00 11/30/16 06:00 (Carafate Liq) 1 gm Q6HR PO 11/27/16 18:00 11/30/16 06:00 (Proamatine) 10 mg TID PO 11/28/16 18:00 11/29/16 18:08 (Morphine Inj) 2 mg Q4HR PRN IV PUSH 11/29/16 00:00 11/30/16 01:19 (Phenergan) 25 mg Q6H PRN PO 11/28/16 22:15 11/29/16 16:49 A/P Assessment and Plan 1. Recurrent pancreatitis, Lipase on admission 708, Acute on chronic she had already extensive GI workup, has been negative nothing by mouth, IV fluids, pain control, Lipase today 163 improved. advanced diet improving condition, okay to discharge Home she will go initially to a Hotel. 2. Seizure disorder continue home medicines 3. COPD continue Bronchodilator, Mucolytic and incentive spirometry. 4. Hypotension continue low even on Midodrine 5 mg TID will increase to 10 mg TID. better blood pressure measurement. 5. Depression. continue home medicines. Code status: Full code. DVT prophylaxis with Lovenox. Discussed Condition With Patient and her sister in the room. also nurse Present, extensive conversation with her and her Sister and will need to change her lifestyle to improve, she lives in a car, will go to a Hotel as per [employer] help for one month, also will need to eat on time three times a day, this is a social issue. Code Status Full Code. Discharge Planning Expected later today Nima Shipman MD November 30, 2016 07:38
[2016-11-30] MEDS ORDERED: MORPHINE SULFATE 15 MG TAB PO PRN (09:00)
[2016-11-30] MEDS: SODIUM CHLORIDE 0.9% FLUSH 10 ML FLUSH IV FLUSH SCH (09:45)
[2016-11-30] MEDS: MIDODRINE 5 MG TAB PO SCH (09:46)
[2016-11-30] MEDS: LIPASE/PROTEASE/AMYLASE (6,000/19,000/30,000) CAP PO SCH (09:46)
[2016-11-30] MEDS: LIPASE/PROTEASE/AMYLASE (12,000/38,000/60,000) CAP PO SCH (09:46)
[2016-11-30] MEDS: levETIRAcetam 500 MG TAB PO SCH (09:46)
[2016-11-30] MEDS: TOPIRAMATE 200 MG TAB PO SCH (09:46)
[2016-11-30] MEDS: guaiFENesin E.R. 600 MG TAB PO SCH (09:46)
[2016-11-30] MEDS ORDERED: MIDO5TAB PO (11:56)
[2016-11-30] MEDS ORDERED: MSIR15 PO (11:56)
--- NOTE | 2016-11-30 17:46 | HHI.DS ---
Discharge Summary Admission Date Nov 27, 2016 at 18:01 Discharge Date: November 30, 2016 Admitting Diagnosis Pancreatitis (1) Pancreatitis, recurrent ICD Code: K86.1 Diagnosis: Principal Procedures No procedures performed. Brief History - From Admission This is a pleasant 51 y/o Female with Chronic pancreatitis, Seizure disorder, Migraines, Asthma, Hypotension, Depression, who came to ER with Abdominal pain, she has recurrent pancreatitis with admissions due to this also multiple ER evaluations, Seen in her bedroom in Emergency room in the presence of one of her sisters Mrs. Kathleen Lacey, the patient is been having pain for the last 3 days, as an epigastric abdominal pain radiated to the back, 9/10 in intensity, and as a Sharp sensation. Associated nausea and vomit. also loose stools. CBC/BMP: 11/28/16 0655 11/29/16 0427 Significant Findings Laboratory Tests Test 11/28/16 11/29/16 06:55 04:27 White Blood Count 3.3 TH/MM3 (4.0-11.0) Hemoglobin 10.9 GM/DL (11.6-15.3) Hematocrit 33.4 % (35.0-46.0) Platelet Count 95 TH/MM3 (150-450) Eosinophils (%) (Auto) 12.7 % (0.0-4.0) Neutrophils # (Auto) 1.7 TH/MM3 (1.8-7.7) Lymphocytes # (Auto) 0.9 TH/MM3 (1.0-4.8) Platelet Estimate LOW (NORMAL) Chloride Level 116 MEQ/L 112 MEQ/L (98-107) (98-107) Carbon Dioxide Level 19.2 MEQ/L (21.0-32.0) Estimat Glomerular Filtration 63 ML/MIN (>89) 67 ML/MIN (>89) Rate Calcium Level 7.8 MG/DL 8.3 MG/DL (8.5-10.1) (8.5-10.1) Total Protein 5.3 GM/DL (6.4-8.2) Albumin 3.1 GM/DL (3.4-5.0) Lipase 464 U/L (73-393) Imaging Last Impressions Abdomen/Pelvis CT 11/27/16 0000 Signed Impressions: Service Date/Time: Sunday, November 27, 2016 16:56 - CONCLUSION: Essentially unremarkable study except for slight nonspecific fluid in the cul-de-sac. Ninfa Potter MD PE at Discharge GENERAL: Well-developed fair-nourished thin patient. Sitting up legged in bed in no acute distress. SKIN: Warm and dry. No lesions noted. HEENT: Normocephalic. Pupils equal and round. Mucous membranes pink and moist. CARDIOVASCULAR: Regular rate and rhythm. No murmur appreciated. RESPIRATORY: No accessory muscle use. Clear to auscultation. Breath sounds equal bilaterally. GASTROINTESTINAL: Abdomen soft, non-tender, nondistended. Bowel sounds x4. MUSCULOSKELETAL: No obvious deformities. No clubbing or cyanosis. No edema. NEUROLOGICAL: Awake and alert. No focal neurological deficits. Moves upper and lower extremities spontaneously. Normal speech. PSYCHIATRIC: Odd mood and affect; insight and judgment normal. Hospital Course This is a pleasant 51 y/o Female with Chronic pancreatitis, Seizure disorder, Migraines, Asthma, Hypotension, Depression, who came to ER with Abdominal pain, she has recurrent pancreatitis with admissions due to this also multiple ER evaluations, Seen in her bedroom in Emergency room in the presence of one of her sisters Mrs. Kathleen Lacey, the patient is been having pain for the last 3 days, as an epigastric abdominal pain radiated to the back, 9/10 in intensity, and as a Sharp sensation. Associated nausea and vomit. also loose stools. 11/29: Seen in her bedroom in the presence of her sister, improving her Lipase to normal levels, as per patient continue with some discomfort but able to take by mouth. discussed with nurse. started liquid diet. 11/30: Yesterday was discussed in length with her Sister Mrs. Kathleen Lacey she states both are basically Homeless, they live in a car or when they can in a hotel. today again her Sister in the room, her lifestyle has to change in order to improve her Health status, as per her Sister the Body Shop Worker is coming to help then and gave them a Hotel for one month. Assessment and Plan 1. Recurrent pancreatitis, Lipase on admission 708, Acute on chronic she had already extensive GI workup, has been negative nothing by mouth, IV fluids, pain control, Lipase today 163 improved. advanced diet improving condition, okay to discharge Home she will go initially to a Hotel. 2. Seizure disorder continue home medicines 3. COPD continue Bronchodilator, Mucolytic and incentive spirometry. 4. Hypotension continue low even on Midodrine 5 mg TID will increase to 10 mg TID. better blood pressure measurement. 5. Depression. continue home medicines. Code status: Full code. DVT prophylaxis with Lovenox. Discussed Condition With Patient and her sister in the room. also nurse Present, extensive conversation with her and her Sister and will need to change her lifestyle to improve, she lives in a car, will go to a Hotel as per [employer] help for one month, also will need to eat on time three times a day, this is a social issue. Code Status Full Code. Discharge Planning Discharge home now. Pt Condition on Discharge: Good Discharge Disposition: Discharge Home Discharge Time: <= 30 minutes Discharge Instructions DIET: Follow Instructions for: As Tolerated, No Restrictions Activities you can perform: Regular-No Restrictions Nima Shipman MD November 30, 2016 17:46
== END 2016-11-30 14:31 | disposition home or self-care (01) | DRG 440 ==
LOC: NEPD 15:01 → NEDA 17:45 → OBSVTOIN 18:01 → NEPHCDU 19:20
PROVIDERS: ADMIT Internal Medicine; ATTEND Internal Medicine
DX: K86.1 Other chronic pancreatitis (principal); I95.9 Hypotension, unspecified; I10 Essential (primary) hypertension; J44.9 Chronic obstructive pulmonary disease, unspecified; F32.9 Major depressive disorder, single episode, unspecified; G40.909 Epilepsy, unspecified, not intractable, without status epilepticus; G43.909 Migraine, unspecified, not intractable, without status migrainosus; J45.909 Unspecified asthma, uncomplicated; K21.9 Gastro-esophageal reflux disease without esophagitis; Z59.0 Homelessness
CPT/HCPCS: 74177; 80048; 80053; 80076; 81001; 82948; 83690; 85025; 94150; 94640; 94664; 96361; 96374; 96375; C9113; J0780; J1885; J2270; J2405; J7030; J7040; Q0169; Q9967

== ENCOUNTER 2017-01-25 19:14 | Emergency (ER) | payer MEDICAID ==
[~2017-01-25] VITALS: Ht 160 cm; Wt 48.0 kg
[~2017-01-25 19:14] MED LIST changes: +MSIR15 PO
[2017-01-25 19:16] VITALS: BP 115/72; PULSE 78; RESP 16; TEMP 98.8; O2SAT 97
--- NOTE | 2017-01-25 19:38 | PD ---
Physical Exam Date Seen by Provider: Jan 25, 2017 Time Seen by Provider: 19:37 Narrative 52 yo female here for back pain and abdominal pain. Per patient going on for a few days. History of pancreatitis and feels similar. Taking meds for pain with no help. No N/V/D. Pain is 7/10. Vitals are stable. Awaiting bed placement. Data Data Last Documented VS Vital Signs Date Time Temp Pulse Resp B/P Pulse Ox O2 Delivery O2 Flow Rate FiO2 01/25/17 19:16 98.8 78 16 115/72 97 Room Air [facility] Medical Record Reviewed: Yes Supervised Visit with POOJA: No Zeus Grewal Jan 25, 2017 19:38
[2017-01-25] MEDS ORDERED: TEMA15CA PO (21:47)
[2017-01-25] MEDS ORDERED: SODIUM CHLOR 0.9% 1000 ML INJ 1,000 ML IV SCH (22:04)
--- NOTE | 2017-01-25 22:11 | PD ---
HPI Chief Complaint: GI Complaint Time Seen by Provider: 22:01 Travel History International Travel<30 days: No Contact w/Intl Traveler<30days: No Traveled to known affect area: No History of Present Illness HPI 52-year-old female with chronic pancreatitis, seizure disorder, migraines, asthma, hypotension, depression, here for evaluation of epigastric pain radiating to her back. Symptoms have been going on for the last 2 days, constant, 9 out of 10, sharp. She states that this feels very similar to her previous episodes of pancreatitis. No urinary symptoms. No nausea or vomiting. She denies history of abdominal surgeries. She denies history of alcohol use or abuse. PFSH Past Medical History Anemia: Yes Arthritis: No Asthma: Yes Autoimmune Disease: No Blood Disorders: No Anxiety: Yes Depression: Yes Heart Rhythm Problems: No Cancer: No Cardiovascular Problems: No High Cholesterol: No Chemotherapy: No Chest Pain: No Congestive Heart Failure: No COPD: No Cerebrovascular Accident: Yes Diabetes: No Diminished Hearing: No Endocrine: Yes (Pancreatitis) Gastrointestinal Disorders: Yes (GERD) GERD: Yes Genitourinary: No Headaches: Yes Hiatal Hernia: No Heparin Induced Thrombocytopen: No Hypertension: No Immune Disorder: No Implanted Vascular Access Dvce: No Insomnia: Yes Kidney Stones: No Musculoskeletal: No Neurologic: Yes (headaches, epilepsy) Psychiatric: Yes Reproductive: No Respiratory: Yes (ASTHMA) Immunizations Current: Yes Migraines: Yes Pancreatitis: Yes Radiation Therapy: No Renal Failure: No Seizures: Yes Sickle Cell Disease: No Sleep Apnea: No Thyroid Disease: No Ulcer: Yes Tetanus Vaccination: < 5 Years Influenza Vaccination: No ?: Not LMP: 14 years ago Menopausal: Yes : 1 Para: 1 Miscarriage: 0 : 0 Ovarian Cysts: Yes Past Surgical History Abdominal Surgery: No AICD: No Arteriovenous Shunt: No Cardiac Surgery: No Ear Surgery: No Endocrine Surgery: No Eye Surgery: Yes (R EYE LASIX AND CORNEA TRANSPLANT ) Genitourinary Surgery: No Gynecologic Surgery: No Insulin Pump: No Joint Replacement: No Neurologic Surgery: No Oral Surgery: No Pacemaker: No Thoracic Surgery: No Other Surgery: No (unable to assess) Social History Alcohol Use: No Tobacco Use: No Substance Use: No Allergies-Medications (Allergen,Severity, Reaction): Coded Allergies: Aspirin (Verified Allergy, Severe, 01/25/17) anaphylaxis Benadryl (Verified Allergy, Severe, 01/25/17) anaphylaxis Codeine (Verified Allergy, Severe, 01/25/17) Keflex (Verified Allergy, Severe, Hives, 01/25/17) Penicillin (Verified Allergy, Severe, Anaphylaxis, 01/25/17) Latex (Verified Allergy, Unknown, 01/25/17) Dilantin (Verified Adverse Reaction, Intermediate, 01/25/17) was given toxic dose years ago Reported Meds & Prescriptions Reported Meds & Active Scripts Active Morphine IR (Morphine Sulfate) 15 Mg Tab 15 Mg PO Q4H PRN DO NOT TAKE THIS MEDICINE IF YOU WILL DRIVE A CAR OR USE A MACHINE, ONLY USE IT WHEN RESTING AT HOME. Midodrine 5 Mg Tab 10 Mg PO TID Bentyl (Dicyclomine HCl) 20 Mg Tab 20 Mg PO QID PRN Phenergan (Promethazine HCl) 25 Mg Tab 25 Mg PO ONCE Zofran Odt (Ondansetron Odt) 8 Mg Tab 8 Mg SL Q8H PRN Reported Temazepam 15 Mg Cap 15 Mg PO HS PRN Spiriva Handihaler (Tiotropium Inh) 18 Mcg Cap 18 Mcg INH DAILY 1 capsule = 18 mcg Advair Diskus Inh (Fluticasone-Salmeterol Inh) 100-50 Mcg/Blist Aer 100 Puff INH BID Rinse mouth after use. Topamax (Topiramate) 200 Mg Tab 200 Mg PO BID Creon (Pancrelipase) 3,000-9,500-15,000 Units Cap 1 Cap PO TIDPC Pancreaze (Pancrelipase) 16,800-40,000-70,000 Units Cap 1 Cap PO TIDPC Imitrex (Sumatriptan Succinate) 50 Mg Tab 50 Mg PO ONCE PRN If a satisfactory response has not been obtained at 2 hours, a second dose may be administered Keppra (Levetiracetam) 1,000 Mg Tab 1,000 Mg PO BID Review of Systems Except as stated in HPI: all other systems reviewed are Neg Physical Exam Narrative GENERAL: Well-developed, thin, no apparent distress. SKIN: Focused skin assessment warm/dry. HEAD: Atraumatic. Normocephalic. EYES: Pupils equal and round. No scleral icterus. No injection or drainage. ENT: Mucous membranes pink and dry. NECK: Trachea midline. No JVD. CARDIOVASCULAR: Regular rate and rhythm. RESPIRATORY: No accessory muscle use. Clear to auscultation. Breath sounds equal bilaterally. GASTROINTESTINAL: Abdomen soft, mild epigastric tenderness without peritoneal signs. Nondistended. Normal bowel sounds. Rest of abdomen is soft and nontender. MUSCULOSKELETAL: No obvious deformities. No clubbing. No cyanosis. No edema. NEUROLOGICAL: Awake and alert. No obvious cranial nerve deficits. Motor grossly within normal limits. Normal speech. PSYCHIATRIC: Appropriate mood and affect; insight and judgment normal. Data Data Last Documented VS Vital Signs Date Time Temp Pulse Resp B/P Pulse Ox O2 Delivery O2 Flow Rate FiO2 01/25/17 23:03 16 98 Room Air 01/25/17 19:16 98.8 78 115/72 Orders Complete Blood Count With Diff (01/25/17 22:04) Comprehensive Metabolic Panel (01/25/17 22:04) Lipase (01/25/17 22:04) Lactic Acid (01/25/17 22:04) Prothrombin Time / Inr (Pt) (01/25/17 22:04) Act Partial Throm Time (Ptt) (01/25/17 22:04) Urinalysis - C+S If Indicated (01/25/17 22:04) Ct Abd/Pel W Iv Contrast(Rout) (01/25/17 22:04) Iv Access Insert/Monitor (01/25/17 22:04) Ecg Monitoring (01/25/17 22:04) Oximetry (01/25/17 22:04) Morphine Inj (Morphine Inj) (01/25/17 22:15) Sodium Chlor 0.9% 1000 Ml Inj (Ns 1000 M (01/25/17 22:04) Sodium Chloride 0.9% Flush (Ns Flush) (01/25/17 22:15) Electrocardiogram (01/25/17 ) Ondansetron Inj (Zofran Inj) (01/25/17 23:15) Ondansetron Inj (Zofran Inj) (01/25/17 23:07) Iohexol 350 Inj (Omnipaque 350 Inj) (01/25/17 23:35) Pantoprazole Inj (Protonix Inj) (01/26/17 00:00) Al-Mag Hy-Si 40-40-4 Mg/Ml Liq (Mag-Al P (01/26/17 00:00) Lidocaine 2% Viscous (Xylocaine 2% Visco (01/26/17 00:00) Labs Laboratory Tests Test 01/25/17 01/25/17 22:40 23:03 White Blood Count 5.8 TH/MM3 Red Blood Count 4.25 MIL/MM3 Hemoglobin 12.0 GM/DL Hematocrit 35.6 % Mean Corpuscular Volume 83.8 FL Mean Corpuscular Hemoglobin 28.2 PG Mean Corpuscular Hemoglobin 33.7 % Concent Red Cell Distribution Width 14.9 % Platelet Count 132 TH/MM3 Mean Platelet Volume 9.6 FL Neutrophils (%) (Auto) 61.6 % Lymphocytes (%) (Auto) 23.2 % Monocytes (%) (Auto) 10.1 % Eosinophils (%) (Auto) 4.4 % Basophils (%) (Auto) 0.7 % Neutrophils # (Auto) 3.6 TH/MM3 Lymphocytes # (Auto) 1.3 TH/MM3 Monocytes # (Auto) 0.6 TH/MM3 Eosinophils # (Auto) 0.3 TH/MM3 Basophils # (Auto) 0.0 TH/MM3 CBC Comment DIFF FINAL Differential Comment Prothrombin Time 10.2 SEC Prothromb Time International 0.9 RATIO Ratio Activated Partial 25.9 SEC Thromboplast Time Sodium Level 139 MEQ/L Potassium Level 3.7 MEQ/L Chloride Level 106 MEQ/L Carbon Dioxide Level 24.0 MEQ/L Anion Gap 9 MEQ/L Blood Urea Nitrogen 19 MG/DL Creatinine 0.79 MG/DL Estimat Glomerular Filtration 76 ML/MIN Rate Random Glucose 98 MG/DL Lactic Acid Level 0.7 mmol/L Calcium Level 8.6 MG/DL Total Bilirubin 0.2 MG/DL Aspartate Amino Transf 18 U/L (AST/SGOT) Alanine Aminotransferase 23 U/L (ALT/SGPT) Alkaline Phosphatase 78 U/L Total Protein 6.3 GM/DL Albumin 3.9 GM/DL Lipase 245 U/L Urine Color YELLOW Urine Turbidity CLEAR Urine pH 5.5 Urine Specific [place] 1.033 Urine Protein TRACE mg/dL Urine Glucose (UA) NEG mg/dL Urine Ketones TRACE mg/dL Urine Occult Blood NEG Urine Nitrite NEG Urine Bilirubin NEG Urine Urobilinogen LESS THAN 2.0 MG/DL Urine Leukocyte Esterase MOD Urine RBC 2 /hpf Urine WBC 3 /hpf Urine Squamous Epithelial 2 /hpf Cells Urine Mucus FEW /lpf Microscopic Urinalysis Comment CULT NOT INDICATED MDM Medical Decision Making Medical Screen Exam Complete: Yes Emergency Medical Condition: Yes Medical Record Reviewed: Yes Interpretation(s) EKG: Sinus, rate 64, normal axis, normal intervals, no acute ischemic abnormality. Differential Diagnosis Recurrent pancreatitis, gastritis, peptic ulcer disease, hepatobiliary disease, ACS Narrative Course Vital signs show heart rate 70, blood pressure 115/72, pulse ox 97% on room air , oral temp of 98.8F. CBC shows to be BC 5.8, hemoglobin 12, hematocrit 35.6, platelets 132. CMP is unremarkable. Lipase is 245. Lactic acid is 0.7. UA is not suggestive of UTI. CT abdomen pelvis: CONCLUSION: Tiny amount of free fluid in the cul-de-sac. Otherwise negative CT abdomen/ pelvis with contrast. Patient and the patient's friend were made aware of all findings. She is very comfortable watching TV and is actually drinking Gatorade which she obtained from her friend. Her abdominal exam is benign. She is stable for discharge home with outpatient follow-up with her primary care physician this week. She was informed on when to return to the emergency department. She verbalizes understanding and agreement with plan. Diagnosis Primary Impression: Abdominal pain Qualified Code: R10.13 - Epigastric pain Referrals: Primary Care Physician 3 days Additional Instructions: Follow-up with your primary care physician this week. Return to the emergency department for worsening symptoms or any other concerns. Disposition: 01 DISCHARGE HOME Condition: Stable Edilberto Montilla MD Jan 25, 2017 22:11
[2017-01-25] MEDS ORDERED: SODIUM CHLORIDE 0.9% FLUSH 10 ML FLUSH IV FLUSH PRN (22:15)
[2017-01-25] MEDS ORDERED: MORPHINE SULFATE 4 MG/ML INJ IV PUSH ONE (22:15)
[2017-01-25 22:52] LABS: AUTOMATED NEUTROPHIL # 3.6 TH/MM3 (1.8-7.7); BASOPHIL % 0.7 % (0.0-2.0); EOSINOPHIL # 0.3 TH/MM3 (0-0.4); EOSINOPHIL % 4.4 % (0.0-4.0); HEMATOCRIT 35.6 % (35.0-46.0); HEMO FLAGS DIFF FINAL; LYMPH % 23.2 % (9.0-44.0); LYMPHOCYTE # 1.3 TH/MM3 (1.0-4.8); MEAN CELL VOLUME 83.8 FL (80.0-100.0); MEAN CORPUSCULAR HEMOGLOBIN 28.2 PG (27.0-34.0); MEAN CORPUSCULAR HGB CONC 33.7 % (32.0-36.0); MONO % 10.1 % (0.0-8.0); NEUT % 61.6 % (16.0-70.0); PLATELET COUNT 132 TH/MM3 (150-450); RED BLOOD COUNT 4.25 MIL/MM3 (4.00-5.30); RED CELL DISTRIBUTION WIDTH 14.9 % (11.6-17.2); WHITE BLOOD COUNT 5.8 TH/MM3 (4.0-11.0)
[2017-01-25 23:02] LABS: APTT (PATIENT) 25.9 SEC (24.3-30.1); INTERNATIONAL NORMALIZED RATIO 0.9 RATIO; PROTHROMBIN TIME - PATIENT 10.2 SEC (9.8-11.6)
[2017-01-25 23:03] VITALS: RESP 16; O2SAT 98
[2017-01-25] MEDS ORDERED: ONDANSETRON HCL 4 MG/2 ML VIAL ONE (23:07)
[2017-01-25 23:08] LABS: ANION GAP 9 MEQ/L (5-15); AST (GOT) 18 U/L (15-37); BLOOD UREA NITROGEN 19 MG/DL (7-18); CHLORIDE 106 MEQ/L (98-107); GLOMERULAR FILTRATION RATE 76 ML/MIN (>89); POTASSIUM 3.7 MEQ/L (3.5-5.1); SODIUM (NA) 139 MEQ/L (136-145)
[2017-01-25 23:09] LABS: ALT (GPT) 23 U/L (10-53)
[2017-01-25 23:11] LABS: ALKALINE PHOSPHATASE 78 U/L (45-117); TOTAL BILIRUBIN ADULT 0.2 MG/DL (0.2-1.0)
[2017-01-25] MEDS ORDERED: ONDANSETRON HCL 4 MG/2 ML VIAL IV PUSH ONE (23:15)
[2017-01-25] MEDS ORDERED: IOHEXOL 350 MG/ML 10 ML VIAL (for RAD DIAG) IV ONE (23:35)
[2017-01-25 23:51] LABS: BLOOD, URINE NEG (NEG); COMMENT (UR) CULT NOT INDICATED; CULTURE IF INDICATED CULT NOT INDICATED; GLUCOSE,URINE NEG (NEG); KETONE, URINE TRACE mg/dL (NEG); MUCUS URINE FEW /lpf (OCC); NITRITE,URINE NEG (NEG); PH, URINE 5.5 (5.0-8.5); SQUAMOUS EPITHELIAL CELL URINE 2 /hpf (0-5); URINE COLOR YELLOW (YELLW/STRAW)
[2017-01-26] MEDS ORDERED: ALUMINUM/MAGNESIUM/SIMETH 30 ML CUP PO ONE
[2017-01-26] MEDS ORDERED: PANTOPRAZOLE SODIUM 40 MG VIAL IVP ONE
[2017-01-26] MEDS ORDERED: LIDOCAINE VISCOUS 2% SOLN 15 ML UDC PO ONE
--- NOTE | 2017-01-26 00:17 | RADRPT ---
EXAM DATE/TIME: 01/25/2017 23:33 [facility] COMPARISON: CT ABDOMEN & PELVIS W CONTRAST, November 27, 2016, 16:56. INDICATIONS : Abdomen pain with nausea and vomiting. IV CONTRAST: 75 cc Omnipaque 350 (iohexol) IV ORAL CONTRAST: No oral contrast ingested. RADIATION DOSE: 4.69 CTDIvol (mGy) MEDICAL HISTORY : Gastroesophageal reflux disease. Pancreatitis. Anemia SURGICAL HISTORY : None. ENCOUNTER: Initial ACUITY: 2 days PAIN SCALE: 9/10 LOCATION: Bilateral abdomen TECHNIQUE: Volumetric scanning of the abdomen and pelvis was performed. Using automated exposure control and ad justment of the mA and/or kV according to patient size, radiation dose was kept as low as reasonably achievable to obtain optimal diagnostic quality images. DICOM format image data is available electro nically for review and comparison. FINDINGS: LOWER LUNGS: The visualized lower lungs are clear. Stable 5 mm calcified granuloma medial right lower lung. LIVER: Homogeneous density without lesion. There is no dilation of the biliary tree. No calcified gallston es. SPLEEN: Normal size without lesion. PANCREAS: Within normal limits. KIDNEYS: Normal in size and shape. There is no mass, stone or hydronephrosis. ADRENAL GLANDS: Within normal limits. VASCULAR: There is no aortic aneurysm. BOWEL/MESENTERY: The stomach, small bowel, and colon demonstrate no acute abnormality. There is no free intraperitone al air or fluid. ABDOMINAL WALL: Within normal limits. RETROPERITONEUM: There is no lymphadenopathy. BLADDER: No wall thickening or mass. REPRODUCTIVE: No masses seen. Small amount of free fluid in the cul-de-sac. INGUINAL: There is no lymphadenopathy or hernia. MUSCULOSKELETAL: Within normal limits for patient age. CONCLUSION: Tiny amount of free fluid in the cul-de-sac. Otherwise negative CT abdomen/pelvis with contrast. Jorge Goldstein MD on January 26, 2017 at 0:10 Board Certified Radiologist. This report was verified electronically.
--- NOTE | 2017-01-26 23:16 | EKG ---
Date Performed: 01/25/2017 Time Performed: 23:47:47 PTAGE: 52 years EKG: Sinus rhythm NORMAL ECG PREVIOUS TRACING : 04/02/2016 09.05 Compared to prior tracing no significant change DOCTOR: Sonia Stafford Interpretating Date/Time 01/26/2017 23:14:05
== END 2017-01-26 01:03 | disposition home or self-care (01) ==
LOC: NEPD 19:14
DX: R10.13 Epigastric pain (principal); Z87.19 Personal history of other diseases of the digestive system; Z86.69 Personal history of other diseases of the nervous system and sense organs; Z87.09 Personal history of other diseases of the respiratory system; Z86.2 Personal history of diseases of the blood and blood-forming organs and certain disorders involving the immune mechanism; Z86.59 Personal history of other mental and behavioral disorders; Z86.79 Personal history of other diseases of the circulatory system
CPT/HCPCS: 74177; 80053; 81001; 83605; 83690; 85025; 85610; 85730; 93005; 96374; 96375; 99285; C9113; J2270; J2405; J7030; Q9967

== ENCOUNTER 2017-05-07 13:24 | Emergency (ER) | payer MEDICAID ==
[~2017-05-07] VITALS: Ht 160 cm; Wt 46.0 kg
[~2017-05-07 13:24] MED LIST changes: -NEXI20CA PO; +TEMA15CA PO
[2017-05-07 13:26] VITALS: BP 117/58; PULSE 105; RESP 15; TEMP 98; O2SAT 96
--- NOTE | 2017-05-07 14:28 | PD ---
HPI Chief Complaint: Injury Time Seen by Provider: 14:25 Travel History International Travel<30 days: No Contact w/Intl Traveler<30days: No Traveled to known affect area: No History of Present Illness HPI 52-year-old female presents to emergency room for evaluation right anterior wrist pain. Patient states that she struck it on a shopping cart when she attempted to help a friend who was falling.. She reports immediate pain. States she is concerned because a bruise has formed. Denies any limitations range of motion alterations in sensation but does report pain exacerbated with flexion and extension of the wrist. Pain is a 6 out of 10. She has not taken anything for. She has no other symptoms to report. PFSH Past Medical History Anemia: Yes Arthritis: No Asthma: Yes Autoimmune Disease: No Blood Disorders: No Anxiety: Yes Depression: Yes Heart Rhythm Problems: No Cancer: No Cardiovascular Problems: No High Cholesterol: No Chemotherapy: No Chest Pain: No Congestive Heart Failure: No COPD: No Cerebrovascular Accident: Yes Diabetes: No Diminished Hearing: No Endocrine: Yes (Pancreatitis) Gastrointestinal Disorders: Yes (GERD) GERD: Yes Genitourinary: No Headaches: Yes Hiatal Hernia: No Heparin Induced Thrombocytopen: No Hypertension: No Immune Disorder: No Implanted Vascular Access Dvce: No Insomnia: Yes Kidney Stones: No Musculoskeletal: No Neurologic: Yes (headaches, epilepsy) Psychiatric: Yes Reproductive: No Respiratory: Yes (ASTHMA) Immunizations Current: Yes Migraines: Yes Pancreatitis: Yes Radiation Therapy: No Renal Failure: No Seizures: Yes Sickle Cell Disease: No Sleep Apnea: No Thyroid Disease: No Ulcer: Yes ?: Not Menopausal: Yes : 1 Para: 1 Miscarriage: 0 : 0 Ovarian Cysts: Yes Past Surgical History Abdominal Surgery: No AICD: No Arteriovenous Shunt: No Cardiac Surgery: No Ear Surgery: No Endocrine Surgery: No Eye Surgery: Yes (R EYE LASIX AND CORNEA TRANSPLANT ) Genitourinary Surgery: No Gynecologic Surgery: No Insulin Pump: No Joint Replacement: No Neurologic Surgery: No Oral Surgery: No Pacemaker: No Thoracic Surgery: No Other Surgery: No (unable to assess) Social History Alcohol Use: No Tobacco Use: No Substance Use: No Allergies-Medications (Allergen,Severity, Reaction): Coded Allergies: aspirin (Unverified Allergy, Severe, 05/07/17) anaphylaxis cephalexin (Unverified Allergy, Severe, Hives, 05/07/17) codeine (Unverified Allergy, Severe, 05/07/17) diphenhydramine (Unverified Allergy, Severe, 05/07/17) anaphylaxis penicillin G (Unverified Allergy, Severe, Anaphylaxis, 05/07/17) latex (Unverified Allergy, Unknown, 05/07/17) phenytoin (Unverified Adverse Reaction, Intermediate, 05/07/17) was given toxic dose years ago Reported Meds & Prescriptions Reported Meds & Active Scripts Active Morphine IR (Morphine Sulfate) 15 Mg Tab 15 Mg PO Q4H PRN DO NOT TAKE THIS MEDICINE IF YOU WILL DRIVE A CAR OR USE A MACHINE, ONLY USE IT WHEN RESTING AT HOME. Midodrine 5 Mg Tab 10 Mg PO TID Bentyl (Dicyclomine HCl) 20 Mg Tab 20 Mg PO QID PRN Phenergan (Promethazine HCl) 25 Mg Tab 25 Mg PO ONCE Zofran Odt (Ondansetron Odt) 8 Mg Tab 8 Mg SL Q8H PRN Reported Temazepam 15 Mg Cap 15 Mg PO HS PRN Spiriva Handihaler (Tiotropium Inh) 18 Mcg Cap 18 Mcg INH DAILY 1 capsule = 18 mcg Advair Diskus Inh (Fluticasone-Salmeterol Inh) 100-50 Mcg/Blist Aer 100 Puff INH BID Rinse mouth after use. Topamax (Topiramate) 200 Mg Tab 200 Mg PO BID Creon (Pancrelipase) 3,000-9,500-15,000 Units Cap 1 Cap PO TIDPC Pancreaze (Pancrelipase) 16,800-40,000-70,000 Units Cap 1 Cap PO TIDPC Imitrex (Sumatriptan Succinate) 50 Mg Tab 50 Mg PO ONCE PRN If a satisfactory response has not been obtained at 2 hours, a second dose may be administered Keppra (Levetiracetam) 1,000 Mg Tab 1,000 Mg PO BID Review of Systems Except as stated in HPI: all other systems reviewed are Neg Physical Exam Narrative GENERAL: Well-nourished, well-developed female patient, ambulatory no acute distress SKIN: Focused skin assessment warm/dry. 4 cm x 2 cm area of ecchymosis on the right anterior wrist. No fluctuation. HEAD: Normocephalic. Atraumatic EYES: No scleral icterus. No injection or drainage. NECK: Supple, trachea midline. No JVD or lymphadenopathy. CARDIOVASCULAR: Regular rate and rhythm without murmurs, gallops, or rubs. RESPIRATORY: Breath sounds equal bilaterally. No accessory muscle use. MUSCULOSKELETAL: No cyanosis, or edema. No deformity. Ecchymosis as as described above. No deformity. Distal pulses are palpable. Cap refill within normal limits. Compressor Battery Pellets strength equal bilateral. Patient is full flexion extension of the right wrist as well as the digits of the affected extremity. BACK: Nontender without obvious deformity. No CVA tenderness. Data Data Last Documented VS Vital Signs Date Time Temp Pulse Resp B/P (MAP) Pulse Ox O2 Delivery O2 Flow Rate FiO2 05/07/17 15:44 05/07/17 13:26 98.0 105 15 96 Orders Orders Wrist, Complete ([id number]) (05/07/17 ) Splint Or Brace Apply/Monitor (05/07/17 15:03) Cockup Hand Splint (05/07/17 ) [facility] Medical Decision Making Medical Screen Exam Complete: Yes Emergency Medical Condition: Yes Medical Record Reviewed: Yes Differential Diagnosis Fracture versus sprain versus tendon injury versus dislocation versus contusion Narrative Course 52-year-old female presents for screening for evaluation right wrist pain. Patient appears well. There is no deformity however there is ecchymosis on the anterior wrist. X-ray imaging is complete Last Impressions Wrist X-Ray 05/07/17 0000 Signed Impressions: Service Date/Time: Sunday, May 07, 2017 14:42 - CONCLUSION: Widening of the scapholunate space presumably reflects ligamentous disruption, age indeterminate. Could be further assessed on an outpatient basis with MRI if clinically appropriate Edwin Gonsalves MD Findings are discussed with the patient. She is placed in a Velcro wrist splint. She is encouraged to follow-up with a hand specialist. She agrees return immediately with any acute worsening symptoms. Diagnosis Primary Impression: Right wrist injury Qualified Codes: S69.91XA - Unspecified injury of right wrist, hand and finger (s), initial encounter Referrals: Hand Surgeon Primary Care Physician Patient Instructions: General Instructions, Wrist Injury (DC) Additional Instructions: Ice and elevate to reduce pain and swelling Brace for support Tylenol or ibuprofen as directed on the package as needed for pain Follow-up with hand specialist. Outpatient MRI may be warranted if symptoms persist Return immediately with any acute worsening of symptoms Med/Other Pt SpecificInfo: No Change to Meds Disposition: 01 DISCHARGE HOME Condition: Stable Zahira Londono May 07, 2017 14:28
--- NOTE | 2017-05-07 14:50 | RADRPT ---
EXAM DATE/TIME: 05/07/2017 14:42 [place] COMPARISON: No previous studies available for comparison. INDICATIONS : Pain from impact against sink. MEDICAL HISTORY : None. SURGICAL HISTORY : None. ENCOUNTER: Initial ACUITY: 1 day PAIN SCORE: 5/10 LOCATION: Right anterior wrist. FINDINGS: The scapholunate interval is widened and may reflect ligamentous disruption. There is no evidence of fracture or dislocation. Mineralization is normal no other articular abnormalities are appreciated. CONCLUSION: Widening of the scapholunate space presumably reflects ligamentous disruption, age indeterminate. Cou ld be further assessed on an outpatient basis with MRI if clinically appropriate Edwin Gonsalves MD on May 07, 2017 at 14:47 Board Certified Radiologist. This report was verified electronically.
== END 2017-05-07 15:54 | disposition home or self-care (01) ==
LOC: NEPD 13:24
DX: S69.91XA Unspecified injury of right wrist, hand and finger(s), initial encounter (principal); W22.8XXA Striking against or struck by other objects, initial encounter; Y93.89 Activity, other specified
CPT/HCPCS: 73110; 99283; L3908

== ENCOUNTER 2017-06-12 17:18 | Emergency (ER) | payer MEDICAID ==
[~2017-06-12] VITALS: Ht 160 cm; Wt 45.0 kg
[2017-06-12 17:19] VITALS: BP 124/78; PULSE 96; RESP 20; TEMP 98.4; O2SAT 96
[2017-06-12] MEDS ORDERED: ONDANSETRON HCL 4 MG/2 ML VIAL IV PUSH ONE (19:30)
[2017-06-12] MEDS ORDERED: SODIUM CHLOR 0.9% 1000 ML INJ 1,000 ML IV ONE (19:30)
[2017-06-12] MEDS ORDERED: SODIUM CHLORIDE 0.9% FLUSH 10 ML FLUSH IV FLUSH PRN (19:30)
--- NOTE | 2017-06-12 20:05 | PD ---
HPI Chief Complaint: GI Complaint Time Seen by Provider: 19:18 Travel History International Travel<30 days: No Contact w/Intl Traveler<30days: No Traveled to known affect area: No History of Present Illness HPI 52-year-old female presents to the emergency department playing of several days of abdominal pain with nausea and vomiting scant amount of diarrhea no hematemesis no coffee-ground emesis no bilious emesis also with history of migraine with photophobia. Patient has long-standing history of migraine anorexia abdominal pain asthma seizure disorder and pancreatitis. Patient reports she is concerned that she is having an exacerbation of her pancreatitis and that she has no narcotic pain medicine for her abdominal pain or her migraine headache. Headache is not sudden onset thunderclap or worst ever. Patient has had subjective fever without chills. Patient denies hematemesis coffee-ground emesis melena hematochezia or mucoid stools or excessive flatus. Patient denies dysuria frequency urgency or hematuria. Patient is postmenopausal and denies vaginal bleeding or vaginal discharge. Patient states that she has seen her doctor for recent nonproductive cough that has not responded to [id number] cough medications and was prescribed Tessalon Perles which has seemed to help some but has had no wheezing and no productive cough shortness of breath pleuritic pain or chest pain. Patient rates her overall pain 8-9/10 in intensity. Patient has taken Imitrex for her migraine without relief. Patient is unable to identify specific exacerbating or alleviating factors. Patient denies any injury or fall. Patient denies any seizure activity. Patient reportedly has been compliant with her medications. [facility] Past Medical History Narrative Medical Anemia asthma seizure CVA migraine pancreatitis anorexia anxiety depression GERD peptic ulcer disease ovarian cyst right eye: cornea transplant Lasix and visual loss; no tobacco use no alcohol use no substance use; nursing notes reviewed Anemia: Yes Arthritis: No Asthma: Yes Autoimmune Disease: No Blood Disorders: No Anxiety: Yes Depression: Yes Heart Rhythm Problems: No Cancer: No Cardiovascular Problems: No High Cholesterol: No Chemotherapy: No Chest Pain: No Congestive Heart Failure: No COPD: No Cerebrovascular Accident: Yes Diabetes: No Diminished Hearing: No Endocrine: Yes (Pancreatitis) Gastrointestinal Disorders: Yes (GERD) GERD: Yes Genitourinary: No Headaches: Yes Hiatal Hernia: No Heparin Induced Thrombocytopen: No Hypertension: No Immune Disorder: No Implanted Vascular Access Dvce: No Insomnia: Yes Kidney Stones: No Musculoskeletal: No Neurologic: Yes (headaches, epilepsy) Psychiatric: Yes Reproductive: No Respiratory: Yes (ASTHMA) Immunizations Current: Yes Migraines: Yes Pancreatitis: Yes Radiation Therapy: No Renal Failure: No Seizures: Yes Sickle Cell Disease: No Sleep Apnea: No Thyroid Disease: No Ulcer: Yes Menopausal: Yes : 1 Para: 1 Miscarriage: 0 : 0 Ovarian Cysts: Yes Past Surgical History Abdominal Surgery: No AICD: No Arteriovenous Shunt: No Cardiac Surgery: No Ear Surgery: No Endocrine Surgery: No Eye Surgery: Yes (R EYE LASIX AND CORNEA TRANSPLANT ) Genitourinary Surgery: No Gynecologic Surgery: No Insulin Pump: No Joint Replacement: No Neurologic Surgery: No Oral Surgery: No Pacemaker: No Thoracic Surgery: No Other Surgery: No (unable to assess) Social History Alcohol Use: No Tobacco Use: No Substance Use: No Allergies-Medications (Allergen,Severity, Reaction): Coded Allergies: aspirin (Verified Allergy, Severe, 06/12/17) anaphylaxis cephalexin (Verified Allergy, Severe, Hives, 06/12/17) codeine (Verified Allergy, Severe, 06/12/17) diphenhydramine (Verified Allergy, Severe, 06/12/17) anaphylaxis penicillin G (Verified Allergy, Severe, Anaphylaxis, 06/12/17) latex (Verified Allergy, Unknown, 06/12/17) phenytoin (Verified Adverse Reaction, Intermediate, 06/12/17) was given toxic dose years ago Reported Meds & Prescriptions Reported Meds & Active Scripts Active Morphine IR (Morphine Sulfate) 15 Mg Tab 15 Mg PO Q4H PRN DO NOT TAKE THIS MEDICINE IF YOU WILL DRIVE A CAR OR USE A MACHINE, ONLY USE IT WHEN RESTING AT HOME. Midodrine 5 Mg Tab 10 Mg PO TID Bentyl (Dicyclomine HCl) 20 Mg Tab 20 Mg PO QID PRN Phenergan (Promethazine HCl) 25 Mg Tab 25 Mg PO ONCE Zofran Odt (Ondansetron Odt) 8 Mg Tab 8 Mg SL Q8H PRN Reported Temazepam 15 Mg Cap 15 Mg PO HS PRN Spiriva Handihaler (Tiotropium Inh) 18 Mcg Cap 18 Mcg INH DAILY 1 capsule = 18 mcg Advair Diskus Inh (Fluticasone-Salmeterol Inh) 100-50 Mcg/Blist Aer 100 Puff INH BID Rinse mouth after use. Topamax (Topiramate) 200 Mg Tab 200 Mg PO BID Creon (Pancrelipase) 3,000-9,500-15,000 Units Cap 1 Cap PO TIDPC Pancreaze (Pancrelipase) 16,800-40,000-70,000 Units Cap 1 Cap PO TIDPC Imitrex (Sumatriptan Succinate) 50 Mg Tab 50 Mg PO ONCE PRN If a satisfactory response has not been obtained at 2 hours, a second dose may be administered Keppra (Levetiracetam) 1,000 Mg Tab 1,000 Mg PO BID Review of Systems Except as stated in HPI: all other systems reviewed are Neg General / Constitutional: Positive: Fever (subjective), No: Chills Eyes: Positive: Photophobia HENT: Positive: Headaches, No: Sore Throat, Congestion, Neck Stiffness, Neck Pain Cardiovascular: No: Chest Pain or Discomfort, Diaphoresis, Syncope Respiratory: Positive: Cough, No: Shortness of Breath, Wheezing, Orthopnea, Hemoptysis, Pleuritic Pain Gastrointestinal: Positive: Nausea, Vomiting, Diarrhea, Abdominal Pain Genitourinary: No: Urgency, Frequency, Dysuria, Hematuria, Flank Pain, Discharge, Vaginal Bleeding Musculoskeletal: No: Myalgias, Arthralgias Skin: No Rash Neurologic: No: Weakness, Dizziness, Syncope, Focal Abnormalities, Coordination Problem Psychiatric: No: Anxiety Endocrine: No: Heat Intolerance Hematologic/Lymphatic: No: Easy Bruising Physical Exam Narrative GENERAL: Well-developed well-nourished female in no acute distress no respiratory distress SKIN: Warm and dry. HEAD: Atraumatic. Normocephalic. EYES: Pupils equal and round. No scleral icterus. No injection or drainage. No papilledema on funduscopic exam. ENT: No nasal bleeding or discharge. Mucous membranes pink and moist. Airway is patent. NECK: Trachea midline. No JVD. Supple no meningismus no nuchal rigidity. CARDIOVASCULAR: Regular rate and rhythm. RESPIRATORY: No accessory muscle use. Clear to auscultation. Breath sounds equal bilaterally. GASTROINTESTINAL: Abdomen soft, mild diffuse tenderness primarily suprapubic to palpation without guarding or rebound, nondistended. Hepatic and splenic margins not palpable. MUSCULOSKELETAL: Extremities without clubbing, cyanosis, or edema. No obvious deformities. NEUROLOGICAL: Awake and alert. No obvious cranial nerve deficits. Motor grossly within normal limits. Five out of 5 muscle strength in the arms and legs. Normal speech. PSYCHIATRIC: Appropriate mood and affect; insight and judgment normal. Data Data Last Documented VS Vital Signs Date Time Temp Pulse Resp B/P (MAP) Pulse Ox O2 Delivery O2 Flow Rate FiO2 06/12/17 21:24 98 Room Air 06/12/17 21:23 79 16 06/12/17 17:19 98.4 Orders Orders Complete Blood Count With Diff (06/12/17 19:18) Comprehensive Metabolic Panel (06/12/17 19:18) Lipase (06/12/17 19:18) Urinalysis - C+S If Indicated (06/12/17 19:18) Iv Access Insert/Monitor (06/12/17 19:18) Ecg Monitoring (06/12/17 19:18) Oximetry (06/12/17 19:18) Sodium Chloride 0.9% Flush (Ns Flush) (06/12/17 19:30) Sodium Chlor 0.9% 1000 Ml Inj (Ns 1000 M (06/12/17 19:30) Ondansetron Inj (Zofran Inj) (06/12/17 19:30) Pantoprazole Inj (Protonix Inj) (06/12/17 21:00) Morphine Inj (Morphine Inj) (06/12/17 21:00) Urine Culture (06/12/17 20:00) Ketorolac Inj (Toradol Inj) (06/12/17 23:30) Nitrofurantoin Monohyd Macrocr (Macrobid (06/12/17 23:30) Ed Discharge Order (06/12/17 23:36) Labs Laboratory Tests Test 06/12/17 20:00 White Blood Count 7.6 TH/MM3 Red Blood Count 4.19 MIL/MM3 Hemoglobin 11.7 GM/DL Hematocrit 35.5 % Mean Corpuscular Volume 84.7 FL Mean Corpuscular Hemoglobin 27.8 PG Mean Corpuscular Hemoglobin Concent 32.8 % Red Cell Distribution Width 14.3 % Platelet Count 144 TH/MM3 Mean Platelet Volume 10.0 FL Neutrophils (%) (Auto) 60.5 % Lymphocytes (%) (Auto) 30.3 % Monocytes (%) (Auto) 7.0 % Eosinophils (%) (Auto) 1.4 % Basophils (%) (Auto) 0.8 % Neutrophils # (Auto) 4.6 TH/MM3 Lymphocytes # (Auto) 2.3 TH/MM3 Monocytes # (Auto) 0.5 TH/MM3 Eosinophils # (Auto) 0.1 TH/MM3 Basophils # (Auto) 0.1 TH/MM3 CBC Comment DIFF FINAL Differential Comment Urine Color LIGHT-YELLOW Urine Turbidity CLEAR Urine pH 6.0 Urine Specific [place] 1.014 Urine Protein NEG mg/dL Urine Glucose (UA) NEG mg/dL Urine Ketones NEG mg/dL Urine Occult Blood NEG Urine Nitrite NEG Urine Bilirubin NEG Urine Urobilinogen LESS THAN 2.0 MG/DL Urine Leukocyte Esterase LARGE Urine RBC 2 /hpf Urine WBC 12 /hpf Urine Bacteria RARE /hpf Urine Mucus FEW /lpf Microscopic Urinalysis Comment CULTURE INDICATED Blood Urea Nitrogen 18 MG/DL Creatinine 0.95 MG/DL Random Glucose 87 MG/DL Total Protein 6.4 GM/DL Albumin 3.9 GM/DL Calcium Level 8.6 MG/DL Alkaline Phosphatase 75 U/L Aspartate Amino Transf (AST/SGOT) 20 U/L Alanine Aminotransferase (ALT/SGPT) 27 U/L Total Bilirubin 0.2 MG/DL Sodium Level 138 MEQ/L Potassium Level 4.4 MEQ/L Chloride Level 104 MEQ/L Carbon Dioxide Level 28.9 MEQ/L Anion Gap 5 MEQ/L Estimat Glomerular Filtration Rate 62 ML/MIN Lipase 364 U/L MDM Medical Decision Making Medical Screen Exam Complete: Yes Emergency Medical Condition: Yes Medical Record Reviewed: Yes Interpretation(s) CBC & BMP Diagram 06/12/17 20:00 Total Protein 6.4, Albumin 3.9, Calcium Level 8.6, Alkaline Phosphatase 75, Aspartate Amino Transf (AST/SGOT) 20, Alanine Aminotransferase (ALT/SGPT) 27, Total Bilirubin 0.2 Vital Signs Date Time Temp Pulse Resp B/P (MAP) Pulse Ox O2 Delivery O2 Flow Rate FiO2 06/12/17 21:24 98 Room Air 06/12/17 21:23 79 16 114/60 (78) 96 Room Air 06/12/17 17:19 98.4 96 20 124/78 (93) 96 Urinalysis positive WBCs and bacteria leukocyte Estrace culture is indicated Differential Diagnosis Abdominal pain gastroenteritis gastritis peptic ulcer disease biliary colic pancreatitis UTI dehydration electrolyte disturbance migraine Narrative Course IV access obtained specimens collected and sent for resulting patient administered bolus of normal saline and Zofran 4 mg IV Patient resting comfortably requesting pain medication given one-time dose of morphine 2 mg IV Advise resulted and found to be grossly within normal range except for urinalysis which shows white blood cells bacteria and leukocyte Estrace with culture indicated patient given first dose of antibiotic by mouth in the emergency department and one-time dose of Toradol for ongoing complain of pain requesting pain medication Patient is stable for outpatient management and follow-up with her primary care provider Diagnosis Primary Impression: UTI (urinary tract infection) Additional Impression: Migraine headache Referrals: Primary Care Physician 1 day Patient Instructions: General Instructions Additional Instructions: Follow clear liquid diet for next 12-24 hours advance as tolerated to bland/ Hema diet and regular diet as tolerated Follow-up with your primary care provider Complete course of antibiotic as prescribed May use Zofran for nausea and/or vomiting per prescription instructions as needed Complete course of antibiotic as prescribed May use acetaminophen/Tylenol as needed for fever 100.4F or greater Med/Other Pt SpecificInfo: Prescription(s) given Scripts Ondansetron Odt (Zofran Odt) 4 Mg Tab 4 MG SL Q6HR Y for Nausea/Vomiting, #10 TAB 0 Refills Prov: Candice Lenz MD 06/12/17 Nitrofurantoin Monohydrate Macrocrystals (Macrobid) 100 Mg Cap 100 MG PO BID for Infection for 7 Days, #14 CAP 0 Refills Prov: Candice Lezn MD 06/12/17 Disposition: 01 DISCHARGE HOME Condition: Stable Candice Lenz MD Jun 12, 2017 20:05
[2017-06-12] MEDS ORDERED: PANTOPRAZOLE SODIUM 40 MG VIAL IV PUSH ONE (21:00)
[2017-06-12] MEDS ORDERED: MORPHINE SULFATE 4 MG/ML INJ IV PUSH ONE (21:00)
[2017-06-12 21:05] LABS: AUTOMATED NEUTROPHIL # 4.6 TH/MM3 (1.8-7.7); BASOPHIL # 0.1 TH/MM3 (0-0.2); BASOPHIL % 0.8 % (0.0-2.0); EOSINOPHIL # 0.1 TH/MM3 (0-0.4); EOSINOPHIL % 1.4 % (0.0-4.0); HEMATOCRIT 35.5 % (35.0-46.0); HEMO FLAGS DIFF FINAL; LYMPH % 30.3 % (9.0-44.0); LYMPHOCYTE # 2.3 TH/MM3 (1.0-4.8); MEAN CELL VOLUME 84.7 FL (80.0-100.0); MEAN CORPUSCULAR HEMOGLOBIN 27.8 PG (27.0-34.0); MEAN CORPUSCULAR HGB CONC 32.8 % (32.0-36.0); NEUT % 60.5 % (16.0-70.0); PLATELET COUNT 144 TH/MM3 (150-450); RED BLOOD COUNT 4.19 MIL/MM3 (4.00-5.30); RED CELL DISTRIBUTION WIDTH 14.3 % (11.6-17.2); WHITE BLOOD COUNT 7.6 TH/MM3 (4.0-11.0)
[2017-06-12 21:15] LABS: BACTERIA, URINE RARE /hpf; BLOOD, URINE NEG (NEG); GLUCOSE,URINE NEG (NEG); KETONE, URINE NEG (NEG); MUCUS URINE FEW /lpf (OCC); NITRITE,URINE NEG (NEG); URINE COLOR LIGHT-YELLOW (YELLW/STRAW)
[2017-06-12 21:16] LABS: COMMENT (UR) CULTURE INDICATED; CULTURE IF INDICATED CULTURE INDICATED
[2017-06-12 21:23] VITALS: BP 114/60; PULSE 79; RESP 16; O2SAT 96
[2017-06-12 21:24] VITALS: O2SAT 98
[2017-06-12 21:26] LABS: ALT (GPT) 27 U/L (10-53)
[2017-06-12 21:27] LABS: ANION GAP 5 MEQ/L (5-15); AST (GOT) 20 U/L (15-37); BICARBONATE 28.9 MEQ/L (21.0-32.0); BLOOD UREA NITROGEN 18 MG/DL (7-18); CHLORIDE 104 MEQ/L (98-107); GLOMERULAR FILTRATION RATE 62 ML/MIN (>89); POTASSIUM 4.4 MEQ/L (3.5-5.1); SODIUM (NA) 138 MEQ/L (136-145)
[2017-06-12 21:28] LABS: ALKALINE PHOSPHATASE 75 U/L (45-117); TOTAL BILIRUBIN ADULT 0.2 MG/DL (0.2-1.0)
[2017-06-12] MEDS ORDERED: NITROFURANTOIN MONOHYD MACROCR 100 MG CAP PO ONE (23:30)
[2017-06-12] MEDS ORDERED: KETOROLAC TROMETHAMINE 30 MG/ML (IVP) VIAL IV PUSH ONE (23:30)
[2017-06-12] MEDS ORDERED: MACR100C2 PO (23:42)
[2017-06-12] MEDS ORDERED: ZOFR4TAB3 SL (23:42)
== END 2017-06-13 00:09 | disposition home or self-care (01) ==
LOC: NEPC 17:18
DX: N39.0 Urinary tract infection, site not specified (principal); G43.909 Migraine, unspecified, not intractable, without status migrainosus
CPT/HCPCS: 80053; 81001; 83690; 85025; 87086; 96374; 96375; 99284; C9113; J1885; J2270; J2405; J7030

== ENCOUNTER 2017-08-26 15:00 | Emergency (ER) | payer MEDICAID, OTHER ==
[~2017-08-26] VITALS: Ht 160 cm; Wt 44.5 kg
[~2017-08-26 15:00] MED LIST changes: +MACR100C2 PO; +ZOFR4TAB3 SL
[2017-08-26 15:01] VITALS: BP 125/67; PULSE 92; RESP 16; TEMP 98.6; O2SAT 98
[2017-08-26] MEDS ORDERED: IOHEXOL 350 MG/ML 10 ML VIAL (for RAD DIAG) IVCONTRAST ONE (15:01)
[2017-08-26 15:54] VITALS: BP 129/70; PULSE 70; RESP 18; O2SAT 100
[2017-08-26] MEDS ORDERED: SODIUM CHLOR 0.9% 1000 ML INJ 1,000 ML IV SCH (15:55)
--- NOTE | 2017-08-26 15:55 | PD ---
HPI Chief Complaint: Headache Time Seen by Provider: 15:43 Travel History International Travel<30 days: No Contact w/Intl Traveler<30days: No Traveled to known affect area: No History of Present Illness HPI PATIENT C/O NAUSEA, DIARRHEA AND ABDOMINAL CRAMPING(CRAMPY, GENERALIZED, 02/07) OVER THE LAST 3 DAYS AND NOW IS DEVELOPING HEADACHES (GENERALIZED, NO PHOTOPHOBIA NOW, 11/08, ) PFSH Past Medical History Anemia: Yes Arthritis: No Asthma: Yes Autoimmune Disease: No Blood Disorders: No Anxiety: Yes Depression: Yes Heart Rhythm Problems: No Cancer: No Cardiovascular Problems: No High Cholesterol: No Chemotherapy: No Chest Pain: No Congestive Heart Failure: No COPD: No Cerebrovascular Accident: Yes Diabetes: No Diminished Hearing: No Endocrine: Yes (Pancreatitis) Gastrointestinal Disorders: Yes (GERD) GERD: Yes Genitourinary: No Headaches: Yes Hiatal Hernia: No Heparin Induced Thrombocytopen: No Hypertension: No Immune Disorder: No Implanted Vascular Access Dvce: No Insomnia: Yes Kidney Stones: No Musculoskeletal: No Neurologic: Yes (headaches, epilepsy) Psychiatric: Yes Reproductive: No Respiratory: Yes (ASTHMA) Immunizations Current: Yes Migraines: Yes Pancreatitis: Yes Radiation Therapy: No Renal Failure: No Seizures: Yes Sickle Cell Disease: No Sleep Apnea: No Thyroid Disease: No Ulcer: Yes LMP: no more Menopausal: Yes : 1 Para: 1 Miscarriage: 0 : 0 Ovarian Cysts: Yes Past Surgical History Abdominal Surgery: No AICD: No Arteriovenous Shunt: No Cardiac Surgery: No Ear Surgery: No Endocrine Surgery: No Eye Surgery: Yes (R EYE LASIX AND CORNEA TRANSPLANT ) Genitourinary Surgery: No Gynecologic Surgery: No Insulin Pump: No Joint Replacement: No Neurologic Surgery: No Oral Surgery: No Pacemaker: No Thoracic Surgery: No Social History Alcohol Use: No Tobacco Use: No Substance Use: No Allergies-Medications (Allergen,Severity, Reaction): Coded Allergies: aspirin (Verified Allergy, Severe, 06/12/17) anaphylaxis cephalexin (Verified Allergy, Severe, Hives, 06/12/17) codeine (Verified Allergy, Severe, 06/12/17) diphenhydramine (Verified Allergy, Severe, 06/12/17) anaphylaxis penicillin G (Verified Allergy, Severe, Anaphylaxis, 06/12/17) latex (Verified Allergy, Unknown, 06/12/17) phenytoin (Verified Adverse Reaction, Intermediate, 06/12/17) was given toxic dose years ago Reported Meds & Prescriptions Reported Meds & Active Scripts Active Flagyl (Metronidazole) 500 Mg Tab 500 Mg PO TID 7 Days Cipro (Ciprofloxacin HCl) 500 Mg Tab 500 Mg PO BID 3 Days Zofran Odt (Ondansetron Odt) 4 Mg Tab 4 Mg SL Q6HR PRN Macrobid (Nitrofurantoin Monoh/Nitrofur Macro) 100 Mg Cap 100 Mg PO BID 7 Days Morphine IR (Morphine Sulfate) 15 Mg Tab 15 Mg PO Q4H PRN DO NOT TAKE THIS MEDICINE IF YOU WILL DRIVE A CAR OR USE A MACHINE, ONLY USE IT WHEN RESTING AT HOME. Midodrine 5 Mg Tab 10 Mg PO TID Bentyl (Dicyclomine HCl) 20 Mg Tab 20 Mg PO QID PRN Phenergan (Promethazine HCl) 25 Mg Tab 25 Mg PO ONCE Zofran Odt (Ondansetron Odt) 8 Mg Tab 8 Mg SL Q8H PRN Reported Temazepam 15 Mg Cap 15 Mg PO HS PRN Spiriva Handihaler (Tiotropium Inh) 18 Mcg Cap 18 Mcg INH DAILY 1 capsule = 18 mcg Advair Diskus Inh (Fluticasone-Salmeterol Inh) 100-50 Mcg/Blist Aer 100 Puff INH BID Rinse mouth after use. Topamax (Topiramate) 200 Mg Tab 200 Mg PO BID Creon (Pancrelipase) 3,000-9,500-15,000 Units Cap 1 Cap PO TIDPC Pancreaze (Pancrelipase) 63253-42,000-70,000 Units Cap 1 Cap PO TIDPC Imitrex (Sumatriptan Succinate) 50 Mg Tab 50 Mg PO ONCE PRN If a satisfactory response has not been obtained at 2 hours, a second dose may be administered Keppra (Levetiracetam) 1,000 Mg Tab 1,000 Mg PO BID Review of Systems Except as stated in HPI: all other systems reviewed are Neg General / Constitutional: No: Fever Eyes: No: Visual changes HENT: No: Headaches Cardiovascular: No: Chest Pain or Discomfort Respiratory: No: Shortness of Breath Gastrointestinal: Positive: Nausea, Diarrhea, Abdominal Pain Genitourinary: No: Dysuria Musculoskeletal: No: Pain Skin: No Rash Neurologic: No: Weakness Psychiatric: No: Depression Endocrine: No: Polydipsia Hematologic/Lymphatic: No: Easy Bruising Physical Exam Narrative GENERAL: SKIN: Warm and dry. HEAD: Atraumatic. Normocephalic. EYES: Pupils equal and round. No scleral icterus. No injection or drainage. ENT: No nasal bleeding or discharge. Mucous membranes pink and moist. NECK: Trachea midline. No JVD. CARDIOVASCULAR: Regular rate and rhythm. RESPIRATORY: No accessory muscle use. Clear to auscultation. Breath sounds equal bilaterally. GASTROINTESTINAL: Abdomen soft, DIFFUSELY tender TO PERCUSSION, nONdistended. MUSCULOSKELETAL: Extremities without clubbing, cyanosis, or edema. No obvious deformities. NEUROLOGICAL: Awake and alert. No obvious cranial nerve deficits. Motor grossly within normal limits. Five out of 5 muscle strength in the arms and legs. Normal speech. PSYCHIATRIC: Appropriate mood and affect; insight and judgment normal. Data Data Last Documented VS Vital Signs Date Time Temp Pulse Resp B/P (MAP) Pulse Ox O2 Delivery O2 Flow Rate FiO2 08/26/17 15:58 79 18 100 Room Air 08/26/17 15:01 98.6 Orders Orders Complete Blood Count With Diff (08/26/17 15:55) Comprehensive Metabolic Panel (08/26/17 15:55) Lipase (08/26/17 15:55) Prothrombin Time / Inr (Pt) (08/26/17 15:55) Act Partial Throm Time (Ptt) (08/26/17 15:55) Ct Abd/Pel W Iv Contrast(Rout) (08/26/17 15:55) Iv Access Insert/Monitor (08/26/17 15:55) Ecg Monitoring (08/26/17 15:55) Oximetry (08/26/17 15:55) NPO (08/26/17 15:55) Morphine Inj (Morphine Inj) (08/26/17 16:00) Ondansetron Inj (Zofran Inj) (08/26/17 16:00) Sodium Chlor 0.9% 1000 Ml Inj (Ns 1000 M (08/26/17 15:55) Ed Urine Pregnancytest Poc (08/26/17 15:55) Labs Laboratory Tests Test 08/26/17 16:11 08/26/17 17:02 White Blood Count 6.3 TH/MM3 Red Blood Count 4.88 MIL/MM3 Hemoglobin 13.9 GM/DL Hematocrit 41.2 % Mean Corpuscular Volume 84.5 FL Mean Corpuscular Hemoglobin 28.5 PG Mean Corpuscular Hemoglobin Concent 33.7 % Red Cell Distribution Width 15.1 % Platelet Count 190 TH/MM3 Mean Platelet Volume 9.4 FL Neutrophils (%) (Auto) 73.8 % Lymphocytes (%) (Auto) 16.3 % Monocytes (%) (Auto) 5.2 % Eosinophils (%) (Auto) 4.1 % Basophils (%) (Auto) 0.6 % Neutrophils # (Auto) 4.7 TH/MM3 Lymphocytes # (Auto) 1.0 TH/MM3 Monocytes # (Auto) 0.3 TH/MM3 Eosinophils # (Auto) 0.3 TH/MM3 Basophils # (Auto) 0.0 TH/MM3 CBC Comment DIFF FINAL Differential Comment Blood Urea Nitrogen 10 MG/DL Creatinine 1.04 MG/DL Random Glucose 85 MG/DL Total Protein 7.9 GM/DL Albumin 4.8 GM/DL Calcium Level 9.6 MG/DL Alkaline Phosphatase 93 U/L Aspartate Amino Transf (AST/SGOT) 25 U/L Alanine Aminotransferase (ALT/SGPT) 32 U/L Total Bilirubin 0.4 MG/DL Sodium Level 136 MEQ/L Potassium Level 3.9 MEQ/L Chloride Level 103 MEQ/L Carbon Dioxide Level 22.9 MEQ/L Anion Gap 10 MEQ/L Estimat Glomerular Filtration Rate 55 ML/MIN Lipase 248 U/L Prothrombin Time 9.8 SEC Prothromb Time International Ratio 1.0 RATIO Activated Partial Thromboplast Time 23.7 SEC MDM Medical Decision Making Medical Screen Exam Complete: Yes Emergency Medical Condition: Yes Medical Record Reviewed: Yes Differential Diagnosis GASTROENTERITIS VIRAL V GASTROENTERITIS BACTERIAL V PANCREATITIS V LIVER/KIDNEY INSUFF V ELECTROLYTE ABNL Narrative Course NORMAL ELECTROLYTES , NO ANEMIA, NORMAL LIVER/KIDNEY/PANCREAS FUNCTIONS Diagnosis Primary Impression: Bacterial gastroenteritis Additional Impression: Medication refill Patient Instructions: Gastroenteritis (ED), General Instructions Scripts Ondansetron Odt (Zofran Odt) 4 Mg Tab 4 MG SL Q6HR Y for Nausea/Vomiting, #12 TAB 0 Refills Prov: Phil Richards MD 08/26/17 Sumatriptan (Sumatriptan) 50 Mg Tab 50 MG PO ONCE Y for MIGRAINE HEADACHE, #15 TAB 0 Refills If a satisfactory response has not been obtained at 2 hours, a second dose may be administered Prov: Phil Richarsd MD 08/26/17 Hydrocodone-Acetaminophen ([place]) 5 Mg-325 Mg Tab 1 TAB PO Q6HR Y for PAIN, #14 TAB 0 Refills Prov: Phil Richards MD 08/26/17 Metronidazole (Flagyl) 500 Mg Tab 500 MG PO TID for Infection for 7 Days, TAB 0 Refills Prov: Phil Richards MD 08/26/17 Ciprofloxacin (Cipro) 500 Mg Tab 500 MG PO BID for Infection for 3 Days, #6 TAB 0 Refills Prov: Phil Richards MD 08/26/17 Disposition: 01 DISCHARGE HOME Condition: Stable Phil Richards MD Aug 26, 2017 15:55
[2017-08-26 15:58] VITALS: PULSE 79; RESP 18; O2SAT 100
[2017-08-26] MEDS ORDERED: MORPHINE SULFATE 4 MG/ML INJ IV PUSH ONE ×2 (16:00→19:00)
[2017-08-26] MEDS ORDERED: ONDANSETRON HCL 4 MG/2 ML VIAL IVP ONE (16:00)
[2017-08-26 16:35] LABS: AUTOMATED NEUTROPHIL # 4.7 TH/MM3 (1.8-7.7); BASOPHIL % 0.6 % (0.0-2.0); EOSINOPHIL # 0.3 TH/MM3 (0-0.4); EOSINOPHIL % 4.1 % (0.0-4.0); HEMATOCRIT 41.2 % (35.0-46.0); HEMOGLOBIN 13.9 GM/DL (11.6-15.3); LYMPH % 16.3 % (9.0-44.0); MEAN CELL VOLUME 84.5 FL (80.0-100.0); MEAN CORPUSCULAR HEMOGLOBIN 28.5 PG (27.0-34.0); MEAN CORPUSCULAR HGB CONC 33.7 % (32.0-36.0); MEAN PLATELET VOLUME 9.4 FL (7.0-11.0); MONO % 5.2 % (0.0-8.0); MONOCYTE # 0.3 TH/MM3 (0-0.9); NEUT % 73.8 % (16.0-70.0); PLATELET COUNT 190 TH/MM3 (150-450); RED BLOOD COUNT 4.88 MIL/MM3 (4.00-5.30); RED CELL DISTRIBUTION WIDTH 15.1 % (11.6-17.2); WHITE BLOOD COUNT 6.3 TH/MM3 (4.0-11.0)
[2017-08-26 16:58] LABS: ALBUMIN 4.8 GM/DL (3.4-5.0); AST (GOT) 25 U/L (15-37); BICARBONATE 22.9 MEQ/L (21.0-32.0); BLOOD UREA NITROGEN 10 MG/DL (7-18); CALCIUM 9.6 MG/DL (8.5-10.1); CHLORIDE 103 MEQ/L (98-107); CREATININE 1.04 MG/DL (0.50-1.00); GLOMERULAR FILTRATION RATE 55 ML/MIN (>89); GLUCOSE,RANDOM 85 MG/DL (74-106); LIPASE 248 U/L (73-393); SODIUM (NA) 136 MEQ/L (136-145)
[2017-08-26 17:01] LABS: ALKALINE PHOSPHATASE 93 U/L (45-117); ALT (GPT) 32 U/L (10-53); TOTAL BILIRUBIN ADULT 0.4 MG/DL (0.2-1.0); TOTAL PROTEIN 7.9 GM/DL (6.4-8.2)
[2017-08-26 17:25] LABS: PROTHROMBIN TIME - PATIENT 9.8 SEC (9.8-11.6)
[2017-08-26] MEDS ORDERED: METR-1 PO (18:26)
[2017-08-26] MEDS ORDERED: CIPR-9 PO (18:26)
[2017-08-26] MEDS ORDERED: ZOFR4TAB3 SL (18:41)
[2017-08-26] MEDS ORDERED: SUMA50TA2 PO (18:41)
[2017-08-26] MEDS ORDERED: NORC5TAB PO (18:41)
[2017-08-26] MEDS ORDERED: ONDANSETRON HCL 4 MG/2 ML VIAL IV PUSH ONE (19:00)
--- NOTE | 2017-08-26 19:06 | RADRPT ---
EXAM DATE/TIME: 08/26/2017 18:30 [facility] COMPARISON: CT ABDOMEN & PELVIS W CONTRAST, January 25, 2017, 23:33. INDICATIONS : History of pancreatitis , abdominal pain. IV CONTRAST: 85 cc Omnipaque 350 (iohexol) IV ORAL CONTRAST: No oral contrast ingested. RADIATION DOSE: 6.64 CTDIvol (mGy) MEDICAL HISTORY : Pancreatitis. Seizures. Cerebrovascular disease. SURGICAL HISTORY : None. ENCOUNTER: Initial ACUITY: 1 day PAIN SCALE: 5/10 LOCATION: abdomen TECHNIQUE: Volumetric scanning of the abdomen and pelvis was performed. Using automated exposure control and ad justment of the mA and/or kV according to patient size, radiation dose was kept as low as reasonably achievable to obtain optimal diagnostic quality images. DICOM format image data is available electro nically for review and comparison. FINDINGS: LOWER LUNGS: Mild bibasilar atelectatic changes with a punctate granulomatous calcification medially in the right base. No acute infiltrate. LIVER: Homogeneous density without lesion. There is no dilation of the biliary tree. No calcified gallston es. SPLEEN: Normal size without lesion. PANCREAS: Within normal limits. KIDNEYS: Normal in size and shape. There is no mass, stone or hydronephrosis. Small, 6 mm cortical cyst pole of the left kidney. ADRENAL GLANDS: Within normal limits. VASCULAR: There is no aortic aneurysm. BOWEL/MESENTERY: The stomach, small bowel, and colon demonstrate no acute abnormality. Minimal blood in the descending colon. Minimal free fluid pelvis. No pneumoperitoneum ABDOMINAL WALL: Within normal limits. RETROPERITONEUM: There is no lymphadenopathy. BLADDER: No wall thickening or mass. REPRODUCTIVE: Within normal limits. INGUINAL: There is no lymphadenopathy or hernia. MUSCULOSKELETAL: Within normal limits for patient age. CONCLUSION: 1. Minimal diverticular disease of the descending colon without diverticulitis. 2. Minimal fluid in the pelvis of uncertain etiology. This was present previously and is basically un changed. 3. No acute intraperitoneal or pelvic process to explain current clinical symptoms. Steve Taveras MD on August 26, 2017 at 18:42 Board Certified Radiologist. This report was verified electronically.
== END 2017-08-26 19:33 | disposition home or self-care (01) ==
LOC: NEPC 15:00
DX: K52.89 Other specified noninfective gastroenteritis and colitis (principal); R51 Headache; D64.9 Anemia, unspecified; J45.909 Unspecified asthma, uncomplicated; F41.9 Anxiety disorder, unspecified; K21.9 Gastro-esophageal reflux disease without esophagitis; F32.9 Major depressive disorder, single episode, unspecified; Z86.73 Personal history of transient ischemic attack (TIA), and cerebral infarction without residual deficits; Z87.19 Personal history of other diseases of the digestive system
CPT/HCPCS: 74177; 80053; 83690; 84703; 85025; 85610; 85730; 96361; 96374; 96375; 96376; 99285; J2270; J2405; J7030; Q9967